=== PATIENT | female | born 1935 | race Caucasian/White ===

== ENCOUNTER 2021-01-07 13:33 | Emergency (ER) | payer MEDICARE, MEDICAID, SELFPAY ==
--- NOTE | ~2021-01-07 | XR_ITS ---
EXAMINATION: XR PELVIS CLINICAL INFORMATION: Pelvic pain. Trouble walking. Rule out fracture. COMPARISON: None TECHNIQUE: AP view of the pelvis. FINDINGS: No fracture or dislocation. The hips are well aligned. Joint spaces are maintained with subchondral sclerosis and small marginal osteophytes. Degenerative changes of the lower lumbar spine. The pelvic rim is intact. The bowel gas pattern is unremarkable. XR/XR pelvis 1-2V IMPRESSION: No fracture or malalignment. Mild degenerative changes of the hips.
--- NOTE | ~2021-01-07 | CT_ITS ---
EXAMINATION: CT HEAD WITHOUT CONTRAST CLINICAL INFORMATION: Auditory mental status. Rule out stroke or bleed. COMPARISON: None TECHNIQUE: Contiguous axial imaging was performed from the skull base to vertex without intravenous administration of contrast. This CT examination was performed using dose optimization techniques as appropriate, variously including the following: *Automated exposure control *Adjustment of mA and/or kV according to patient size (this includes techniques or standardized protocols for targeted exams where dose is matched to indication/reason for exam; i.e. extremities or head) *Use of iterative reconstruction technique DLP: 679 mGy-cm FINDINGS: There is no evidence of acute intracranial hemorrhage or territorial infarction. No abnormal mass effect or midline shift is seen. Chavez to white matter differentiation is well preserved. No extra-axial fluid collections are identified. The lateral ventricles are symmetrical in size and and mildly enlarged. There is diffuse periventricular hypodensity in both cerebral hemispheres suggestive of chronic small vessel ischemic changes. The osseous structures and soft tissues are normal. The mastoid air cells and visualized portions of the paranasal sinuses are well aerated. CT/CT head/brain wo con IMPRESSION: No acute intracranial process seen.
--- NOTE | ~2021-01-07 | XR_ITS ---
EXAMINATION: XR CHEST CLINICAL INFORMATION: Change in mental status. Fever. COMPARISON: None TECHNIQUE: Frontal view of the chest was obtained. FINDINGS: Cardiac leads overlie the chest. The lungs are well expanded. Linear right basilar atelectasis. There is no focal consolidation, edema, or effusion. No pneumothorax. The cardiomediastinal silhouette is within normal limits of size with a tortuous aorta. No acute osseous abnormality. XR/XR chest 1V IMPRESSION: No dense consolidation. Linear atelectasis at the right base.
--- NOTE | 2021-01-07 07:35 | ECG_ITS ---
Test Reason : AMS Blood Pressure : / mmHG Vent. Rate : 082 BPM Atrial Rate : 082 BPM P-R Int : 166 ms QRS Dur : 072 ms QT Int : 382 ms P-R-T Axes : 011 000 016 degrees QTc Int : 446 ms Sinus rhythm with Premature atrial complexes Otherwise normal ECG No previous ECGs available Referred By: Aiden Bhatt Electronically Signed By:ALFONZO KELLER
[2021-01-07 13:55] VITALS: PULSE 88; RESP 24; TEMP 38.2; O2SAT 97; BMI 17.2
[2021-01-07 15:00] LABS: Basophils Percent Auto 0.1 % (0-2); Eosinophils Absolute Auto 0.1 X10*3/uL (0.0-0.4); Eosinophils Percent Auto 0.3 % (0-4); Hematocrit 34.7 % (37-47); Hemoglobin 10.9 g/dl (12.0-16.0); Imm Gran Abs Auto 0.07 X10*3/uL (0.00-0.03); Imm Gran Pct Auto 0.4 % (0.0-0.4); Lymphocytes Absolute Auto 1.5 X10*3/uL (1.2-4.9); Lymphocytes Percent Auto 7.8 % (20-40); MANUAL DIFF FLAG NO; Mean Corpuscular HGB Conc 31.4 g/dl (31.0-35.0); Mean Corpuscular Hemoglobin 29.9 pg (27.0-33.0); Mean Corpuscular Volume 95.3 fL (80-98); Mean Platelet Volume 10.1 fL (9.4-12.3); Monocytes Absolute Auto 0.7 X10*3/uL (0.1-1.2); Monocytes Percent Auto 3.5 % (2-11); Neutrophils Absolute Auto 16.6 X10*3/uL (2.0-8.3); Neutrophils Percent Auto 87.9 % (45-73); Platelet Count 281 X10*3/uL (160-400); Red Blood Count 3.64 X10*6/uL (4.20-5.50); Red Cell Distribution Width 13.9 % (11.0-16.0); White Blood Count 18.8 X10*3/uL (4.8-10.8)
[2021-01-07 15:17] LABS: COVID-19 Test Negative (Negative); IDNOW Serial# 9DD0AD1C
[2021-01-07 15:20] LABS: Lactic Acid 1.3 mmol/L (0.5-2.0)
[2021-01-07 15:24] LABS: Alanine Aminotransferase 12 U/L (0-31); Albumin Level 3.8 g/dL (3.5-5.0); Alkaline Phosphatase 75 U/L (39-117); Anion Gap 15 (12-20); Aspartate Amino Transferase 13 U/L (5-31); Bilirubin Total 0.5 mg/dL (0.0-1.0); Blood Urea Nitrogen 19 mg/dL (9-16); Calcium 9.3 mg/dL (8.4-10.2); Carbon Dioxide 28 mmol/L (22-29); Chloride 105 mmol/L (96-108); Creatinine Clr Calc Pharmacy 39.8; Estimated Glomerular Filt Rate > 60; Glucose Random 143 mg/dL (60-115); Lipase 27 U/L (8-78); Potassium 4.5 mmol/L (3.3-5.1); Sodium 143 mmol/L (135-145); Total Protein 6.4 g/dL (6.5-8.0)
[2021-01-07] MEDS: cefTRIAXone sodium 1 GM in 0.9 % Sodium Chloride 50 ML IV (15:29)
[2021-01-07] MEDS: 0.9 % Sodium Chloride 1,000 ML 999 ML IV (15:31)
[2021-01-07] MEDS: Acetaminophen Supp 650 MG SUPP.RECT PR (15:43)
[2021-01-07 16:04] VITALS: BP 132/73; PULSE 88; RESP 22; TEMP 36.7; O2SAT 97
--- NOTE | 2021-01-07 16:26 | ED_ITS ---
HPI - General Adult General Chief complaint: General Medical <Aiden Bhatt MD - Last Filed: 01/07/21 16:39> Stated complaint: AMS <Aiden Bhatt MD - Last Filed: 01/07/21 16:39> Time Seen by Provider: 01/07/21 14:11 <Aiden Bhatt MD - Last Filed: 01/07/21 16:39> Source: EMS and other (ED nurse) <Aiden Bhatt MD - Last Filed: 01/07/21 16:39> Mode of arrival: EMS <Aiden Bhatt MD - Last Filed: 01/07/21 16:39> Limitations: other (Advanced dementia) <Aiden Bhatt MD - Last Filed: 01/07/21 16:39> History of Present Illness HPI narrative: 85-year-old female who was brought to the emergency department by ambulance [facility] for a change in her gait. According to the nurse, report from EMS states that the patient was off balance and had an unusual gait compared to her baseline. There was no other information regarding the patient's presentation provided by nursing facility. The patient has advan nancy dementia and is minimally verbal and is unable to give a history. On presentation the patient was noted to have a fever of 100.7? F. <Aiden Bhatt MD - Last Filed: 01/07/21 16:39> Related Data Allergies/adverse reactions: Allergies Allergy/AdvReac Type Severity Reaction Status Date / Time aspirin Allergy Unknown Verified 01/07/21 14:16 <Aiden Bhatt MD - Last Filed: 01/07/21 16:39> Review of Systems Review of Systems: Yes Unobtainable due to mental status (Advanced dementia) <Aiden Bhatt MD - Last Filed: 01/07/21 16:39> PMFSH Past Medical History PMFSH Narrative: The patient lives in a penit[facility]iary facility. She does not smoke cigarettes, she does not drink alcohol, she does not use drugs. <Aiden Bhatt MD - Last Filed: 01/07/21 16:39> Medical History: Medical History (Updated 01/07/21 @ 14:00 by Jonatan Burgess) Dementia Diabetes type 2, controlled Hyperlipemia Seborrheic dermatitis Vitamin D deficiency <Aiden Bhatt MD - Last Filed: 01/07/21 16:39> Social History Social History: Social History Advance Directives: No Advance Directives Information Provided: No <Aiden Bhatt MD - Last Filed: 01/07/21 16:39> Physical Exam Vital Signs: Vital Signs: Last Vital Signs Temp 98.8 F 01/07/21 17:44 Pulse 94 01/07/21 17:44 Resp 14 01/07/21 17:44 BP 140/75 H 01/07/21 17:44 Pulse Ox 98 01/07/21 17:44 Body Mass Index 17.2 <Aiden Bhatt MD - Last Filed: 01/07/21 16:39> Vital Signs: Last Vital Signs Temp 98.8 F 01/07/21 17:44 Pulse 94 01/07/21 17:44 Resp 14 01/07/21 17:44 BP 140/75 H 01/07/21 17:44 Pulse Ox 98 01/07/21 17:44 Body Mass Index 17.2 <Baldomero Canela MD - Last Filed: 01/07/21 18:29> Const: General: other (Patient is speaking but is incoherent); No in distress <Aiden Bhatt MD - Last Filed: 01/07/21 16:39> Limitations: other limitations (Advanced dementia) <Aiden Bhatt MD - Last Filed: 01/07/21 16:39> HENMT: Head: Yes normal to inspection, Yes normocephalic and Yes atraumatic <Aiden Bhatt MD - Last Filed: 01/07/21 16:39> Ears: external ears normal <Aiden Bhatt MD - Last Filed: 01/07/21 16:39> General nose exam: Normal external nose present <Aiden Bhatt MD - Last Filed: 01/07/21 16:39> Face and sinus: Yes normal facial exam <Aiden Bhatt MD - Last Filed: 01/07/21 16:39> Mouth: other (Dry mucous membrane) <MD Ron Cantu Last Filed: 01/07/21 16:39> Throat: Yes posterior oropharynx normal <Aiden Bhatt MD - Last Filed: 01/07/21 16:39> Eyes: Periorbital: periorbital findings normal <MD Ron Cantu Last Filed: 01/07/21 16:39> Eyelids: Yes eyelids normal <MD Ron Cantu Last Filed: 01/07/21 16:39> Conjunctivae: conjunctivae normal <MD Ron Cantu Last Filed: 01/07/21 16:39> Sclerae: sclerae normal <MD Ron Cantu Last Filed: 01/07/21 16:39> Corneas: corneas normal <Aiden Bhatt MD - Last Filed: 01/07/21 16:39> Pupils: Equal, round and reactive pupils present <MD Ron Cantu Last Filed: 01/07/21 16:39> Direct Ophthalmoscopy: normal light reflex <MD Ron Cantu Last Filed: 01/07/21 16:39> Neck: Neck: Yes full ROM, Yes no lymphadenopathy, Yes no meningeal signs, Yes trachea midline and Yes supple <MD Ron Cantu Last Filed: 01/07/21 16:39> Chest: Chest palpation & inspection: normal inspection of the chest and normal palpation of entire chest wall <MD Ron Cantu Last Filed: 01/07/21 16:39> Resp: Effort & Inspection: normal respiratory effort and able to speak in complete sentences <MD Ron Cantu Last Filed: 01/07/21 16:39> Auscultation: clear to auscultation bilaterally <MD Ron Cantu Last Filed: 01/07/21 16:39> Cardio: Rate: regular rate <MD Ron Cantu Last Filed: 01/07/21 16:39> Rhythm: regular rhythm <Aiden Bhatt MD - Last Filed: 01/07/21 16:39> Heart sounds: S1 normal heart sound present, S2 normal heart sound present and no murmurs <Aiden Bhatt MD - Last Filed: 01/07/21 16:39> GI: Inspection: Yes normal to inspection <Aiden Bhatt MD - Last Filed: 01/07/21 16:39> Palpation (GI): Soft to palpation, nontender, no guarding, not rigid and No hepatosplenomegaly present <Aiden Bhatt MD - Last Filed: 01/07/21 16:39> : General: Yes no CVA tenderness <Aiden Bhatt MD - Last Filed: 01/07/21 16:39> Back/Spine/Pelvis: Back: no CVA tenderness <Aiden Bhatt MD - Last Filed: 01/07/21 16:39> Cervical Spine: normal cervical lordosis <Aiden Bhatt MD - Last Filed : 01/07/21 16:39> Thoracic/Lumbar Spine: thoracic and lumbar spine normal to inspection <Aiden Bhatt MD - Last Filed: 01/07/21 16:39> Skin: Lesions: no lesions <Aiden Bhatt MD - Last Filed: 01/07/21 16:39> Rashes: no rashes <Aiden Bhatt MD - Last Filed: 01/07/21 16:39> Wounds: no wounds <Aiden Bhatt MD - Last Filed: 01/07/21 16:39> Neuro: General: no meningeal signs <MD Ron Cantu Last Filed: 01/07/21 16:39> Cranial nerves: Yes Equal, round and reactive pupils present <MD Ron Cantu Last Filed: 01/07/21 16:39> Motor exam (neuro): Other motor observations present (Moves all extremities symmetrically) <MD Ron Cantu Last Filed: 01/07/21 16:39> Extrem: General: Yes normal to inspection and Yes full ROM <Aiden Bhatt MD - Last Filed: 01/07/21 16:39> Psych: Appearance: well kempt <Aiden Bhatt MD - Last Filed: 01/07/21 16:39> Course Course Course Narrative: 85-year-old female sent to emergency department for evaluation change in gait, found to have a fever of 100.7? F here in the emergency department. Exam was otherwise unremarkable. I did order a CBC, CMP, blood cultures, urine obtained by straight catheterization, chest x-ray, CT scan of the brain and pelvic x-ray. 1633: [place] [address], she had mild anemia with an H&H of 10.9 and 34.7. COVID-19 test was negative. Chest x-ray revealed no evidence of pneumonia, CT scan of the head revealed no acute process, pelvic x-ray revealed no acute fracture. . 12 EKG revealed a sinus rhythm with no acute findings. Given her elevated white blood cell count, I did order ceftriaxone 1 g IV to treat her for possible urinary source for her fever and elevated WBC. Urinalysis is pending. <Aiden Bhatt MD - Last Filed: 01/07/21 16:39> Reevaluation(s) Reevaluation #1: Patient looks much better now having food in the ER workup showed UTI likely the cause of weakness with discharge patient back to detention on cefpodoxime <Baldomero Canela MD - Last Filed: 01/07/21 18:29> Time: 18:28 <Baldomero Canela MD - Last Filed: 01/07/21 18:29> Medical Decision Making Lab Data Result diagrams: : 01/07/21 14:52 01/07/21 14:52 <Aiden Bhatt MD - Last Filed: 01/07/21 16:39> Labs: Lab Results 01/07/21 01/07/21 01/07/21 Range/Units 14:52 14:52 14:52 WBC 18.8 H (4.8-10.8) X10*3/uL RBC 3.64 L (4.20-5.50) X10*6/uL Hgb 10.9 L (12.0-16.0) g/dl Hct 34.7 L (37-47) % MCV 95.3 (80-98) fL MCH 29.9 (27.0-33.0) pg MCHC 31.4 (31.0-35.0) g/dl RDW 13.9 (11.0-16.0) % Plt Count 281 (160-400) X10*3/uL MPV 10.1 (9.4-12.3) fL Immature Gran % (Auto) 0.4 (0.0-0.4) % Neut % (Auto) 87.9 H (45-73) % Lymph % (Auto) 7.8 L (20-40) % [place] % (Auto) 3.5 (2-11) % Eos % (Auto) 0.3 (0-4) % Baso % (Auto) 0.1 (0-2) % Lymph # (Auto) 1.5 (1.2-4.9) X10*3/uL [place] # (Auto) 0.7 (0.1-1.2) X10*3/uL Eos # (Auto) 0.1 (0.0-0.4) X10*3/uL Baso # (Auto) 0.0 (0.0-0.2) X10*3/uL Abs Immat Gran (auto) 0.07 H (0.00-0.03) X10*3/uL Absolute Neuts (auto) 16.6 H (2.0-8.3) X10*3/uL Absolute Nucleated RBC 0.000 (0.0-0.012) X10*3/uL Nucleated RBC % (auto) 0.0 (0.0-0.2) /100WBC Sodium 143 (135-145) mmol/L Potassium 4.5 (3.3-5.1) mmol/L Chloride 105 (96-108) mmol/L Carbon Dioxide 28 (22-29) mmol/L Anion Gap 15 (12-20) BUN 19 H (9-16) mg/dL Creatinine 0.73 (0.5-1.4) mg/dL Estim Creat Clear Calc 39.8 Estimated GFR > 60 Random Glucose 143 H (60-115) mg/dL Lactic Acid 1.3 (0.5-2.0) mmol/L Calcium 9.3 (8.4-10.2) mg/dL Total Bilirubin 0.5 (0.0-1.0) mg/dL AST 13 (5-31) U/L ALT 12 (0-31) U/L Alkaline Phosphatase 75 (39-117) U/L Total Protein 6.4 L (6.5-8.0) g/dL Albumin 3.8 (3.5-5.0) g/dL Lipase 27 (8-78) U/L Urine Color Urine Appearance Urine pH (5.0-8.0) Ur Specific [place] (1.005-1.025) Urine Protein (NEG-TRACE) MG/DL Urine Glucose (UA) (NEG) MG/DL Urine Ketones (NEG) MG/DL Urine Blood (NEG) Urine Nitrite (NEG) Ur Leukocyte Esterase (NEG) Urine RBC (0) /HPF Urine WBC (0-4) /HPF Ur Squamous Epith Cells /LPF Urine Bacteria /LPF COVID-19 ([facility]) (Negative) COVID-19 Clin Com 01/07/21 01/07/21 Range/Units 14:52 16:22 WBC (4.8-10.8) X10*3/uL RBC (4.20-5.50) X10*6/uL Hgb (12.0-16.0) g/dl Hct (37-47) % MCV (80-98) fL MCH (27.0-33.0) pg MCHC (31.0-35.0) g/dl RDW (11.0-16.0) % Plt Count (160-400) X10*3/uL MPV (9.4-12.3) fL Immature Gran % (Auto) (0.0-0.4) % Neut % (Auto) (45-73) % Lymph % (Auto) (20-40) % [place] % (Auto) (2-11) % Eos % (Auto) (0-4) % Baso % (Auto) (0-2) % Lymph # (Auto) (1.2-4.9) X10*3/uL [place] # (Auto) (0.1-1.2) X10*3/uL Eos # (Auto) (0.0-0.4) X10*3/uL Baso # (Auto) (0.0-0.2) X10*3/uL Abs Immat Gran (auto) (0.00-0.03) X10*3/uL Absolute Neuts (auto) (2.0-8.3) X10*3/uL Absolute Nucleated RBC (0.0-0.012) X10*3/uL Nucleated RBC % (auto) (0.0-0.2) /100WBC Sodium (135-145) mmol/L Potassium (3.3-5.1) mmol/L Chloride (96-108) mmol/L Carbon Dioxide (22-29) mmol/L Anion Gap (12-20) BUN (9-16) mg/dL Creatinine (0.5-1.4) mg/dL Estim Creat Clear Calc Estimated GFR Random Glucose (60-115) mg/dL Lactic Acid (0.5-2.0) mmol/L Calcium (8.4-10.2) mg/dL Total Bilirubin (0.0-1.0) mg/dL AST (5-31) U/L ALT (0-31) U/L Alkaline Phosphatase (39-117) U/L Total Protein (6.5-8.0) g/dL Albumin (3.5-5.0) g/dL Lipase (8-78) U/L Urine Color YELLOW Urine Appearance HAZY Urine pH 5.5 (5.0-8.0) Ur Specific [place] >= 1.030 H (1.005-1.025) Urine Protein NEG (NEG-TRACE) MG/DL Urine Glucose (UA) NEG (NEG) MG/DL Urine Ketones NEG (NEG) MG/DL Urine Blood TRACE (NEG) Urine Nitrite POS H (NEG) Ur Leukocyte Esterase 2+ H (NEG) Urine RBC 0 (0) /HPF Urine WBC 76-150 H (0-4) /HPF Ur Squamous Epith Cells 3+ /LPF Urine Bacteria 3+ /LPF COVID-19 ([facility]) Negative (Negative) COVID-19 Clin Com See Note <Aiden Bhatt MD - Last Filed: 01/07/21 16:39> Lab Results 01/07/21 01/07/21 01/07/21 Range/Units 14:52 14:52 14:52 WBC 18.8 H (4.8-10.8) X10*3/uL RBC 3.64 L (4.20-5.50) X10*6/uL Hgb 10.9 L (12.0-16.0) g/dl Hct 34.7 L (37-47) % MCV 95.3 (80-98) fL MCH 29.9 (27.0-33.0) pg MCHC 31.4 (31.0-35.0) g/dl RDW 13.9 (11.0-16.0) % Plt Count 281 (160-400) X10*3/uL MPV 10.1 (9.4-12.3) fL Immature Gran % (Auto) 0.4 (0.0-0.4) % Neut % (Auto) 87.9 H (45-73) % Lymph % (Auto) 7.8 L (20-40) % [place] % (Auto) 3.5 (2-11) % Eos % (Auto) 0.3 (0-4) % Baso % (Auto) 0.1 (0-2) % Lymph # (Auto) 1.5 (1.2-4.9) X10*3/uL [place] # (Auto) 0.7 (0.1-1.2) X10*3/uL Eos # (Auto) 0.1 (0.0-0.4) X10*3/uL Baso # (Auto) 0.0 (0.0-0.2) X10*3/uL Abs Immat Gran (auto) 0.07 H (0.00-0.03) X10*3/uL Absolute Neuts (auto) 16.6 H (2.0-8.3) X10*3/uL Absolute Nucleated RBC 0.000 (0.0-0.012) X10*3/uL Nucleated RBC % (auto) 0.0 (0.0-0.2) /100WBC Sodium 143 (135-145) mmol/L Potassium 4.5 (3.3-5.1) mmol/L Chloride 105 (96-108) mmol/L Carbon Dioxide 28 (22-29) mmol/L Anion Gap 15 (12-20) BUN 19 H (9-16) mg/dL Creatinine 0.73 (0.5-1.4) mg/dL Estim Creat Clear Calc 39.8 Estimated GFR > 60 Random Glucose 143 H (60-115) mg/dL Lactic Acid 1.3 (0.5-2.0) mmol/L Calcium 9.3 (8.4-10.2) mg/dL Total Bilirubin 0.5 (0.0-1.0) mg/dL AST 13 (5-31) U/L ALT 12 (0-31) U/L Alkaline Phosphatase 75 (39-117) U/L Total Protein 6.4 L (6.5-8.0) g/dL Albumin 3.8 (3.5-5.0) g/dL Lipase 27 (8-78) U/L Urine Color Urine Appearance Urine pH (5.0-8.0) Ur Specific [place] (1.005-1.025) Urine Protein (NEG-TRACE) MG/DL Urine Glucose (UA) (NEG) MG/DL Urine Ketones (NEG) MG/DL Urine Blood (NEG) Urine Nitrite (NEG) Ur Leukocyte Esterase (NEG) Urine RBC (0) /HPF Urine WBC (0-4) /HPF Ur Squamous Epith Cells /LPF Urine Bacteria /LPF COVID-19 ([facility]) (Negative) COVID-19 Clin Com 01/07/21 01/07/21 Range/Units 14:52 16:22 WBC (4.8-10.8) X10*3/uL RBC (4.20-5.50) X10*6/uL Hgb (12.0-16.0) g/dl Hct (37-47) % MCV (80-98) fL MCH (27.0-33.0) pg MCHC (31.0-35.0) g/dl RDW (11.0-16.0) % Plt Count (160-400) X10*3/uL MPV (9.4-12.3) fL Immature Gran % (Auto) (0.0-0.4) % Neut % (Auto) (45-73) % Lymph % (Auto) (20-40) % [place] % (Auto) (2-11) % Eos % (Auto) (0-4) % Baso % (Auto) (0-2) % Lymph # (Auto) (1.2-4.9) X10*3/uL [place] # (Auto) (0.1-1.2) X10*3/uL Eos # (Auto) (0.0-0.4) X10*3/uL Baso # (Auto) (0.0-0.2) X10*3/uL Abs Immat Gran (auto) (0.00-0.03) X10*3/uL Absolute Neuts (auto) (2.0-8.3) X10*3/uL Absolute Nucleated RBC (0.0-0.012) X10*3/uL Nucleated RBC % (auto) (0.0-0.2) /100WBC Sodium (135-145) mmol/L Potassium (3.3-5.1) mmol/L Chloride (96-108) mmol/L Carbon Dioxide (22-29) mmol/L Anion Gap (12-20) BUN (9-16) mg/dL Creatinine (0.5-1.4) mg/dL Estim Creat Clear Calc Estimated GFR Random Glucose (60-115) mg/dL Lactic Acid (0.5-2.0) mmol/L Calcium (8.4-10.2) mg/dL Total Bilirubin (0.0-1.0) mg/dL AST (5-31) U/L ALT (0-31) U/L Alkaline Phosphatase (39-117) U/L Total Protein (6.5-8.0) g/dL Albumin (3.5-5.0) g/dL Lipase (8-78) U/L Urine Color YELLOW Urine Appearance HAZY Urine pH 5.5 (5.0-8.0) Ur Specific [place] >= 1.030 H (1.005-1.025) Urine Protein NEG (NEG-TRACE) MG/DL Urine Glucose (UA) NEG (NEG) MG/DL Urine Ketones NEG (NEG) MG/DL Urine Blood TRACE (NEG) Urine Nitrite POS H (NEG) Ur Leukocyte Esterase 2+ H (NEG) Urine RBC 0 (0) /HPF Urine WBC 76-150 H (0-4) /HPF Ur Squamous Epith Cells 3+ /LPF Urine Bacteria 3+ /LPF COVID-19 ([facility]) Negative (Negative) COVID-19 Clin Com See Note <Baldomero Canela MD - Last Filed: 01/07/21 18:29> ECG Data Interpretation: 1611: Sinus rhythm with marked sinus arrhythmia, rate of 82, normal IN, QRS and QTC intervals, no ST segment elevation or depression, no T-wave abnormalities, except for the sinus arrhythmia this is a normal EKG. <Aiden Bhatt MD - Last Filed: 01/07/21 16:39>
[2021-01-07 16:36] LABS: Glucose Urine UA NEG (NEG); Leukocyte Esterase Urine 2+ (NEG); Nitrite Urine POS (NEG); PH 5.5 (5.0-8.0); Specific Gravity - Urine >= 1.030 (1.005-1.025); UACC Culture Trigger YES; Urine Blood TRACE (NEG); Urine Ketones NEG (NEG); Urine Protein NEG (NEG-TRACE)
[2021-01-07 16:41] LABS: Appearance Urine HAZY; Color Urine YELLOW
[2021-01-07 16:56] LABS: RBC Urine 0 /HPF (0)
[2021-01-07 16:57] LABS: Bacteria Urine 3+ /LPF; Squamous Epithelial Cell Urine 3+ /LPF
[2021-01-07 17:44] VITALS: BP 140/75; PULSE 94; RESP 14; TEMP 37.1; O2SAT 98
--- NOTE | 2021-01-07 18:55 | PC.NURSE ---
Report given to [facility]. Ambulance being booked by social secretary at this time.
== END 2021-01-07 20:05 | disposition home or self-care (01) ==
PROVIDERS: Emergency Provider Emergency Medicine Emergency Medical Services; PCP Family Medicine
DX: N39.0 Urinary tract infection, site not specified (principal); F03.90 Unspecified dementia, unspecified severity, without behavioral disturbance, psychotic disturbance, mood disturbance, and anxiety; Z20.822 Contact with and (suspected) exposure to COVID-19; R50.9 Fever, unspecified; E11.9 Type 2 diabetes mellitus without complications; E78.5 Hyperlipidemia, unspecified
CPT/HCPCS: 36415; 70450; 71045; 72170; 80053; 81001; 81003; 83605; 83690; 85025; 87040; 87086; 87088; 87147; 87186; 87205; 87635; 93005; 96361; 96365; 99284; J0696

== ENCOUNTER 2021-05-17 19:18 | Emergency (ER) | payer MEDICARE, MEDICAID, SELFPAY ==
--- NOTE | ~2021-05-17 | XR_ITS ---
EXAMINATION: XR THORACOLUMBAR SPINE CLINICAL INFORMATION: Pain COMPARISON: None TECHNIQUE: 2 view FINDINGS: There is degeneration here but no evidence of listhesis or compression injury on the imaging submitted. XR/XR thoracic spine 2V IMPRESSION: No acute finding. Degenerative changes are noted.
[2021-05-17 19:21] VITALS: BP 124/59; PULSE 81; O2SAT 99
[2021-05-17 19:22] VITALS: BP 148/76; PULSE 72; RESP 16; TEMP 36.9; O2SAT 98; BMI 25.8
--- NOTE | 2021-05-17 20:15 | ED.FALL ---
HPI - Fall General Chief Complaint: Fall Stated Complaint: FALL Time Seen by Provider: 05/17/21 19:48 Source: RN notes reviewed and other (Facility records) Limitations: altered mental status (Dementia) History of Present Illness HPI Narrative: This is an 86-year-old female who reportedly had a mechanical fall and complained of pain in her right shoulder and right knee. Patient has severe dementia. The patient at this time complains only of pain in her upper back, though this was only elicited upon palpation of her upper back. She likely did not hit her head and she denies any neck pain. She denies any chest pain, shortness of breath, abdominal pain. Related Data Previous Rx's Medication Instructions Recorded cefpodoxime 200 mg tablet 200 mg PO BID #20 tab 01/07/21 Allergies Allergy/AdvReac Type Severity Reaction Status Date / Time aspirin Allergy Unknown Verified 01/07/21 14:16 Review of Systems Constitutional: Constitutional: Denies headache(s) ENT: Denies headache(s) Cardiovascular: Cardiovascular: Denies chest pain and Denies dyspnea Respiratory: Respiratory: Denies dyspnea Gastrointestinal: Gastrointestinal: Denies abdominal pain Musculoskeletal: Musculoskeletal: Reports back pain Neurologic: Denies headache(s) and Denies Sensory deficit (Neuro) [facility] Past Medical History Medical History (Updated 05/17/21 @ 20:51 by Abel Richter MD) Dementia Diabetes type 2, controlled Hyperlipemia Seborrheic dermatitis Vitamin D deficiency Social History Social History Advance Directives: No Advance Directives Information Provided: No Physical Exam Vital Signs: Vital Signs: Last Vital Signs Temp 98.5 F 05/17/21 19:22 Pulse 72 05/17/21 19:22 Resp 16 05/17/21 19:22 BP 148/76 H 05/17/21 19:22 Pulse Ox 98 05/17/21 19:22 Body Mass Index 25.8 Const: Other: Patient with dementia, speech somewhat difficult to understand due to her accent. Patient able sit up on the gurney. Shoulders have full range of motion without any focal tenderness. Clavicles nontender. Head normocephalic atraumatic. No cervical spine tenderness. Tenderness to the upper thoracic spine at around T2-T3 with some right paraspinal tenderness in this area. Ribs nontender. Abdomen soft nontender. Pelvis Stable nontender. Lower extremities nontender to flexion and extension General: cooperative, no acute distress and alert HENMT: Head: Yes normal to inspection Eyes: General: appearance normal, both eyes and all related structures Eyelids: Yes eyelids normal Conjunctivae: conjunctivae normal Pupils: Equal, round and reactive pupils present Neck: Neck: Yes normal visual inspection and Yes supple Chest: Chest palpation & inspection: normal inspection of the chest Resp: Effort & Inspection: normal respiratory effort Auscultation: clear to auscultation bilaterally Cardio: Rate: regular rate Rhythm: regular rhythm Heart sounds: S1 normal heart sound present, S2 normal heart sound present, no gallops, no murmurs and no rubs GI: Palpation (GI): Soft to palpation, nontender and Other GI palpation findings present (Non-distended) Auscultation: normal bowel sounds Skin: General skin exam: no rashes or lesions noted Neuro: General: no focal motor deficits and CN's II-XI intact bilaterally Cranial nerves: Yes Equal, round and reactive pupils present Cognition (Neuro): normal cognition Motor exam (neuro): 5/5 motor strength present throughout Sensory Exam: No Sensory deficit (Neuro) Extrem: General: Yes normal to inspection and Yes no pedal edema Psych: Appearance: grossly normal Affect: normal affect MDM - Fall MDM Narrative Medical decision making narrative: Patient with apparently witnessed mechanical fall, had initially complained of pain in her right shoulder and right knee, however upon re-evaluation the patient has no complaint of pain there and has no tenderness on exam to her right shoulder or right knee. Patient did on my exam have tenderness to her upper thoracic spine. Two-view of the spine did not show any compression deformity. There were degenerative changes. Imaging Data Thoracic spine x-ray: My impression: Degenerative changes, no compression deformity Discharge Plan Discharge Clinical Impression: Fall, Dementia Patient Disposition: er [facility] Instructions: Fall Prevention for Older Adults (ED) Additional Instructions: Use Tylenol for pain. Return for any new or worsened symptoms. Prescriptions: No Action cefpodoxime 200 mg tablet 200 mg PO BID Qty: 20 RF: 0
--- NOTE | 2021-05-17 21:29 | PC.NURSE ---
Report called to facility.
== END 2021-05-17 21:36 ==
PROVIDERS: Emergency Provider Emergency Medicine
DX: S49.91XA Unspecified injury of right shoulder and upper arm, initial encounter (principal); F03.90 Unspecified dementia, unspecified severity, without behavioral disturbance, psychotic disturbance, mood disturbance, and anxiety; M79.601 Pain in right arm; G44.309 Post-traumatic headache, unspecified, not intractable; M54.6 Pain in thoracic spine; W01.0XXA Fall on same level from slipping, tripping and stumbling without subsequent striking against object, initial encounter; Y93.9 Activity, unspecified; Y92.9 Unspecified place or not applicable; Y99.9 Unspecified external cause status; Z79.899 Other long term (current) drug therapy
CPT/HCPCS: 72070; 99283; 99284

== ENCOUNTER 2022-11-07 22:23 | Emergency (ER) | payer MEDICARE, MEDICAID, SELFPAY ==
--- NOTE | 2022-11-07 | ECG_ITS ---
Test Reason : vomiting Blood Pressure : / mmHG Vent. Rate : 088 BPM Atrial Rate : 088 BPM P-R Int : 152 ms QRS Dur : 062 ms QT Int : 364 ms P-R-T Axes : 011 -15 022 degrees QTc Int : 440 ms Normal sinus rhythm Possible Left atrial enlargement Minimal voltage criteria for LVH, may be normal variant ( R in aVL ) Nonspecific ST abnormality Abnormal ECG When compared with ECG of 07-JAN-2021 14:06, Premature atrial complexes are no longer Present Referred By: Generic ED Physician Electronically Signed By:JASMYN HERNÁNDEZ MD
--- NOTE | ~2022-11-07 | XR_ITS ---
EXAMINATION: XR CHEST CLINICAL INFORMATION: Cough COMPARISON: 01.07.2021 TECHNIQUE: Frontal view of the chest was obtained. FINDINGS: Normal symmetric lung volumes. No parenchymal consolidation. No pleural effusion. No pneumothorax. Cardiomediastinal silhouette and pulmonary vascularity are within normal limits. Aorta is atherosclerotic. No acute osseous abnormalities. XR/XR chest 1V IMPRESSION: No acute findings.
--- NOTE | ~2022-11-07 | CT_ITS ---
EXAMINATION: CT ABDOMEN AND PELVIS WITHOUT CONTRAST CLINICAL INFORMATION: Vomiting COMPARISON: None TECHNIQUE: Multidetector volumetric imaging was performed from the superior aspect of the liver through the pubic symphysis. Sagittal and coronal reformatted images were obtained on the technologist's workstation. This CT examination was performed using dose optimization techniques as appropriate, variously including the following: *Automated exposure control *Adjustment of mA and/or kV according to patient size (this includes techniques or standardized protocols for targeted exams where dose is matched to indication/reason for exam; i.e. extremities or head) *Use of iterative reconstruction technique DLP: 427 mGy-cm FINDINGS: LUNG BASES: Diffuse moderate bronchial thickening. LIVER, GALLBLADDER, AND BILIARY TREE: The liver is normal in size, shape, and attenuation. No focal hepatic lesion or biliary ductal dilatation is present. The gallbladder is unremarkable with no evidence of radiopaque gallstones, gallbladder wall thickening, or obvious pericholecystic inflammatory changes. PANCREAS: Unremarkable. SPLEEN: Unremarkable. ADRENAL GLANDS: Unremarkable. KIDNEYS AND URETERS: The kidneys are normal in size, shape, and attenuation. No hydronephrosis, hydroureter, or calculi seen. No perinephric stranding. BLADDER: Unremarkable. GASTROINTESTINAL TRACT: Moderate hiatal hernia. The small and large bowel are unremarkable. The appendix is unremarkable. ABDOMINAL WALL: No significant hernia is appreciated. LYMPH NODES: Normal. VASCULAR: Unremarkable. PELVIC VISCERA: Calcified uterine fibroid. No adnexal abnormalities. OSSEOUS STRUCTURES: No acute or suspicious osseous abnormalities. CT/CT abdomen pelvis wo IV con IMPRESSION: * No acute findings within the abdomen or pelvis to explain the patient's symptomatology. * Moderate hiatal hernia. Fleischner guidelines were followed.
[2022-11-07 22:38] VITALS: BP 195/65; PULSE 83; RESP 21; TEMP 37.1; O2SAT 97; BMI 24.5
[2022-11-07 22:44] VITALS: BP 159/64; PULSE 78; RESP 21; O2SAT 98
[2022-11-07 22:59] LABS: MANUAL DIFF FLAG NO
[2022-11-07 23:00] LABS: Basophils Percent Auto 0.1 % (0-2); Eosinophils Absolute Auto 0.2 X10*3/uL (0.0-0.4); Eosinophils Percent Auto 2.3 % (0-4); Hematocrit 35.7 % (37.0-47.0); Hemoglobin 11.2 g/dl (12.0-16.0); Imm Gran Abs Auto 0.03 X10*3/uL (0.00-0.03); Imm Gran Pct Auto 0.4 % (0.0-0.4); Lymphocytes Absolute Auto 1.6 X10*3/uL (1.2-4.9); Lymphocytes Percent Auto 21.8 % (20-40); Mean Corpuscular HGB Conc 31.4 g/dl (31.0-35.0); Mean Corpuscular Hemoglobin 29.4 pg (27.0-33.0); Mean Corpuscular Volume 93.7 fL (80.0-98.0); Mean Platelet Volume 10.2 fL (9.4-12.3); Monocytes Absolute Auto 0.5 X10*3/uL (0.1-1.2); Monocytes Percent Auto 7.2 % (2-11); Neutrophils Absolute Auto 5.1 x10*3/uL (2.0-8.3); Neutrophils Percent Auto 68.2 % (45-73); Platelet Count 248 X10*3/uL (160-400); Red Blood Count 3.81 X10*6/uL (4.20-5.50); Red Cell Distribution Width 13.3 % (11.0-16.0); White Blood Count 7.5 X10*3/uL (4.8-10.8)
[2022-11-07 23:23] LABS: Anion Gap 15 (12-20); Blood Urea Nitrogen 19 mg/dL (9-16); Calcium 8.9 mg/dL (8.4-10.2); Carbon Dioxide 26 mmol/L (22-29); Chloride 104 mmol/L (96-108); Estimated Glomerular Filt Rate > 60; Glucose Random 156 mg/dL (60-115); Potassium 4.4 mmol/L (3.3-5.1); Sodium 141 mmol/L (135-145)
--- NOTE | 2022-11-07 23:37 | PC.NURSE ---
Pt [facility] from [facility], per staff pt vomited coffee ground emesis at 2114. Pt not currently vomiting and denies nausea. Pt changed over into hospital gown and purewick placed for incontinence
--- NOTE | 2022-11-07 23:39 | ED.ABDPAIN ---
HPI - Abdominal Pain General Chief Complaint: Nausea/Vomiting/Diarrhea Stated Complaint: abd pain Time Seen by Provider: 11/07/22 23:28 Source: EMS and RN notes reviewed Mode of arrival: EMS Limitations: altered mental status History of Present Illness HPI narrative: Patient from long term with history of chronic pain syndrome ,GERD, dysphagia type 2 diabetes dementia with psychotic disorder came in from long term for complaining of diffuse abdominal pain at 21:15 vomited 2 times brown coffee color also been having cough for last 3 weeks vitals at the time heart rate was 78 saturating 92% room air blood pressure 193/86 POC was 167 negative COVID test on 11/07/22. Patient denies any complaint seems to be comfortable no cough no vomiting in the ER Related Data Previous Rx's Medication Instructions Recorded cefpodoxime 200 mg tablet 200 mg PO BID #20 tabs 01/07/21 Allergies Allergy/AdvReac Type Severity Reaction Status Date / Time aspirin Allergy Unknown Verified 01/07/21 14:16 Review of Systems Review of Systems Yes Unobtainable due to mental status PMFSH Past Medical History Medical History Dementia Diabetes type 2, controlled Hyperlipemia Seborrheic dermatitis Vitamin D deficiency Social History Social History Advance Directives: No Physical Exam ED Vital Signs: Vital Signs - 24 hr 11/07/22 22:38 11/07/22 22:44 11/08/22 00:11 Temperature 98.7 F Pulse Rate 83 78 80 Respiratory Rate 21 H 21 H 12 Blood Pressure 195/65 H 159/64 H 150/45 H Pulse Oximetry 97 98 98 Oxygen Delivery Method Room Air Room Air Room Air BMI result Body Mass Index 24.5 Appearance: Alert. And awake. No acute distress. Eyes: PERRLA, No Nystagmus ENT: Pharynx normal. Oral Mucosa moist Neck: Normal inspection. Neck supple. CVS: Normal heart rate and rhythm. Pulses normal. Respiratory: No respiratory distress. Equal air entry bilateral, no wheezing/rales/rhonchi Abdomen: Soft and nontender. Bowel sounds are present, no mass palpable, no CVA tenderness rectal; brown stool guaiac negative Skin: Skin warm and dry. Normal skin color. Normal skin turgor. Extremities: No lower extremity edema. No calf tenderness Neuro: Alert and awake no focal deficit Medical Decision Making Medical Decision Making [facility] Narrative: Patient with vomiting at the long term with cough for last [address] scan of the abdomen negative for acute chest x-ray also negative lab workup showed RSV positive patient H and H is stable guaiac is negative will discharge patient back to long term with diagnosis of RSV bronchitis Lab Data [facility] Lab Attestation statement: I reviewed the patient's lab results. 11/07/22 22:54 11/07/22 22:54 Labs: Lab Results 11/07/22 11/07/22 11/07/22 Range/Units 22:54 22:54 22:54 WBC 7.5 (4.8-10.8) X10*3/uL RBC 3.81 L (4.20-5.50) X10*6/uL Hgb 11.2 L (12.0-16.0) g/dl Hct 35.7 L (37.0-47.0) % MCV 93.7 (80.0-98.0) fL MCH 29.4 (27.0-33.0) pg MCHC 31.4 (31.0-35.0) g/dl RDW 13.3 (11.0-16.0) % Plt Count 248 (160-400) X10*3/uL MPV 10.2 (9.4-12.3) fL Immature Gran % (Auto) 0.4 (0.0-0.4) % Neut % (Auto) 68.2 (45-73) % Lymph % (Auto) 21.8 (20-40) % [place] % (Auto) 7.2 (2-11) % Eos % (Auto) 2.3 (0-4) % Baso % (Auto) 0.1 (0-2) % Lymph # (Auto) 1.6 (1.2-4.9) X10*3/uL [place] # (Auto) 0.5 (0.1-1.2) X10*3/uL Eos # (Auto) 0.2 (0.0-0.4) X10*3/uL Baso # (Auto) 0.0 (0.0-0.2) X10*3/uL Abs Immat Gran (auto) 0.03 (0.00-0.03) X10*3/uL Absolute Neuts (auto) 5.1 (2.0-8.3) x10*3/uL Absolute Nucleated RBC 0.000 (0.0-0.012) X10*3/uL Nucleated RBC % (auto) 0.0 (0.0-0.2) /100WBC Sodium 141 (135-145) mmol/L Potassium 4.4 (3.3-5.1) mmol/L Chloride 104 (96-108) mmol/L Carbon Dioxide 26 (22-29) mmol/L Anion Gap 15 (12-20) BUN 19 H (9-16) mg/dL Creatinine 0.68 (0.5-1.4) mg/dL Estim Creat Clear Calc 47.0 Estimated GFR > 60 Random Glucose 156 H (60-115) mg/dL Calcium 8.9 (8.4-10.2) mg/dL Total Bilirubin 0.3 (0.0-1.0) mg/dL Direct Bilirubin < 0.2 (0.0-0.5) mg/dL AST 24 (5-31) U/L ALT 12 (0-31) U/L Alkaline Phosphatase 101 (39-117) U/L Total Protein 7.0 (6.5-8.0) g/dL Albumin 3.9 (3.5-5.0) g/dL Lipase 39 (8-78) U/L Stool Occult Blood (NEGATIVE) Influenza Type A (PCR) NEGATIVE (Negative) Influenza Type B (PCR) NEGATIVE (Negative) RSV RNA Qual (PCR) POSITIVE A (Negative) SARS-CoV-2 RNA (RT-PCR) NEGATIVE (Negative) 11/08/22 Range/Units 01:39 WBC (4.8-10.8) X10*3/uL RBC (4.20-5.50) X10*6/uL Hgb (12.0-16.0) g/dl Hct (37.0-47.0) % MCV (80.0-98.0) fL MCH (27.0-33.0) pg MCHC (31.0-35.0) g/dl RDW (11.0-16.0) % Plt Count (160-400) X10*3/uL MPV (9.4-12.3) fL Immature Gran % (Auto) (0.0-0.4) % Neut % (Auto) (45-73) % Lymph % (Auto) (20-40) % [place] % (Auto) (2-11) % Eos % (Auto) (0-4) % Baso % (Auto) (0-2) % Lymph # (Auto) (1.2-4.9) X10*3/uL [place] # (Auto) (0.1-1.2) X10*3/uL Eos # (Auto) (0.0-0.4) X10*3/uL Baso # (Auto) (0.0-0.2) X10*3/uL Abs Immat Gran (auto) (0.00-0.03) X10*3/uL Absolute Neuts (auto) (2.0-8.3) x10*3/uL Absolute Nucleated RBC (0.0-0.012) X10*3/uL Nucleated RBC % (auto) (0.0-0.2) /100WBC Sodium (135-145) mmol/L Potassium (3.3-5.1) mmol/L Chloride (96-108) mmol/L Carbon Dioxide (22-29) mmol/L Anion Gap (12-20) BUN (9-16) mg/dL Creatinine (0.5-1.4) mg/dL Estim Creat Clear Calc Estimated GFR Random Glucose (60-115) mg/dL Calcium (8.4-10.2) mg/dL Total Bilirubin (0.0-1.0) mg/dL Direct Bilirubin (0.0-0.5) mg/dL AST (5-31) U/L ALT (0-31) U/L Alkaline Phosphatase (39-117) U/L Total Protein (6.5-8.0) g/dL Albumin (3.5-5.0) g/dL Lipase (8-78) U/L Stool Occult Blood NEGATIVE (NEGATIVE) Influenza Type A (PCR) (Negative) Influenza Type B (PCR) (Negative) RSV RNA Qual (PCR) (Negative) SARS-CoV-2 RNA (RT-PCR) (Negative) Medications Administered Discontinued Medications Generic Name Dose Route Start Last Admin Trade Name Freq PRN Reason Stop Dose Admin Famotidine 20 mg 11/07/22 23:53 11/08/22 00:08 Famotidine/Pf 20 Mg/2 Ml Vial IVPUSH 11/07/22 23:54 20 mg ONCE ONE Administration Sodium Chloride 1,000 mls @ 999 mls/hr 11/07/22 23:55 11/08/22 01:04 Ns IV 11/08/22 00:55 Infused .Q1H1M ONE Infusion Discharge Plan Discharge Clinical Impression: Respiratory syncytial virus (RSV) infection, Vomiting Patient Disposition: Xfer [facility] Transfer Details: CT scan of the abdomen negative stool negative for occult blood RSV positive chest x-ray negative Instructions: Respiratory Syncytial Virus (ED) Additional Instructions: Supportive care as advised Follow-up with your PCP Prescriptions: No Action cefpodoxime 200 mg tablet 200 mg PO BID Qty: 20 0RF Rx Instructions: must administer with a meal/food Interventions: ED Discharge Assessment Last Done: 11/08/22 03:03 Discharge Date/Time: 11/08/22 03:03
[2022-11-08] MEDS: Famotidine/PF 20 MG/2 ML VIAL IVPUSH (00:08)
[2022-11-08] MEDS: 0.9 % Sodium Chloride 1,000 ML 999 ML IV (00:09)
[2022-11-08 00:11] VITALS: BP 150/45; PULSE 80; RESP 12; O2SAT 98
[2022-11-08 00:20] LABS: Alanine Aminotransferase 12 U/L (0-31); Albumin Level 3.9 g/dL (3.5-5.0); Alkaline Phosphatase 101 U/L (39-117); Aspartate Amino Transferase 24 U/L (5-31); Bilirubin Direct < 0.2 mg/dL (0.0-0.5); Bilirubin Total 0.3 mg/dL (0.0-1.0); Lipase 39 U/L (8-78)
[2022-11-08 00:52] LABS: Influenza A PCR NEGATIVE (Negative); Influenza B PCR NEGATIVE (Negative); Resp Syncy Virus RNA Qual PCR POSITIVE (Negative); SARS COV2 PCR INHOUSE NEGATIVE (Negative)
--- NOTE | 2022-11-08 01:11 | PC.NURSE ---
pt continues to rest comfortably with no apparent distress, pt tested positive for RSV, pt continues to cough occasionally however no vomiting or nausea
--- NOTE | 2022-11-08 01:41 | PC.NURSE ---
called report back to [facility], staff is aware pt is returned RSV positive
[2022-11-08 01:42] LABS: OBS Int Ctl Valid YES
[2022-11-08 01:43] LABS: OBS1 NEGATIVE (NEGATIVE)
== END 2022-11-08 03:03 | disposition skilled nursing facility (03) ==
PROVIDERS: Emergency Provider Internal Medicine; PCP Family Medicine
DX: R11.2 Nausea with vomiting, unspecified (principal); B97.4 Respiratory syncytial virus as the cause of diseases classified elsewhere; Z20.822 Contact with and (suspected) exposure to COVID-19; Z20.828 Contact with and (suspected) exposure to other viral communicable diseases; E11.9 Type 2 diabetes mellitus without complications; E78.5 Hyperlipidemia, unspecified; F03.92 Unspecified dementia, unspecified severity, with psychotic disturbance; G89.4 Chronic pain syndrome; Z79.899 Other long term (current) drug therapy
CPT/HCPCS: 0241U; 36415; 71045; 74176; 80048; 80076; 82272; 83690; 85025; 93005; 96361; 96374; 99284

== ENCOUNTER 2023-09-19 11:07 | Emergency (ER) | payer MEDICARE, MEDICAID, SELFPAY ==
--- NOTE | 2023-09-19 11:21 | ECG_ITS ---
Test Reason : CHEST PAIN Blood Pressure : / mmHG Vent. Rate : 073 BPM Atrial Rate : 073 BPM P-R Int : 170 ms QRS Dur : 068 ms QT Int : 390 ms P-R-T Axes : 013 -18 035 degrees QTc Int : 429 ms Normal sinus rhythm with sinus arrhythmia Minimal voltage criteria for LVH, may be normal variant ( R in aVL ) Borderline ECG When compared with ECG of 07-NOV-2022 22:43, No significant change was found Referred By: Generic ED Physician Electronically Signed By:JASMYN HERNÁNDEZ MD
[2023-09-19 11:22] VITALS: BP 148/90; BP 157/60; PULSE 66; RESP 18; TEMP 36.5; O2SAT 100; O2SAT 97; BMI 24.2
[2023-09-19 11:52] LABS: MANUAL DIFF FLAG NO
[2023-09-19 11:57] LABS: Basophils Percent Auto 0.2 % (0-2); Eosinophils Absolute Auto 0.1 X10*3/uL (0.0-0.4); Eosinophils Percent Auto 1.4 % (0-4); Hematocrit 37.7 % (37.0-47.0); Hemoglobin 11.8 g/dl (12.0-16.0); Imm Gran Abs Auto 0.02 X10*3/uL (0.00-0.03); Imm Gran Pct Auto 0.2 % (0.0-0.4); Lymphocytes Absolute Auto 1.8 X10*3/uL (1.2-4.9); Lymphocytes Percent Auto 21.9 % (20-40); Mean Corpuscular HGB Conc 31.3 g/dl (31.0-35.0); Mean Corpuscular Hemoglobin 30.3 pg (27.0-33.0); Mean Corpuscular Volume 96.7 fL (80.0-98.0); Mean Platelet Volume 10.7 fL (9.4-12.3); Monocytes Absolute Auto 0.8 X10*3/uL (0.1-1.2); Monocytes Percent Auto 8.9 % (2-11); Neutrophils Absolute Auto 5.6 x10*3/uL (2.0-8.3); Neutrophils Percent Auto 67.4 % (45-73); Platelet Count 238 X10*3/uL (160-400); Red Cell Distribution Width 13.4 % (11.0-16.0); White Blood Count 8.4 X10*3/uL (4.8-10.8)
[2023-09-19 12:10] LABS: Anion Gap 12 (12-20); Blood Urea Nitrogen 18 mg/dL (9-16); Calcium 9.6 mg/dL (8.4-10.2); Carbon Dioxide 29 mmol/L (22-29); Chloride 107 mmol/L (96-108); Creatinine Clr Calc Pharmacy 39.6; Estimated Glomerular Filt Rate > 60; Glucose Random 124 mg/dL (60-115); Potassium 3.8 mmol/L (3.3-5.1); Sodium 144 mmol/L (135-145)
[2023-09-19 12:20] LABS: Troponin-I High Sensitivity < 2.7 ng/L (<3.5-17.0)
--- NOTE | 2023-09-19 12:48 | ED_ITS ---
HPI - Chest Pain General Chief Complaint: Chest Pain Stated Complaint: NAUSEA,VOMITING,CP,HIGH BP 148/90 PER EMS Time Seen by Provider: 09/19/23 12:47 Source: EMS and other (custodial transfer notes) Mode of arrival: EMS Limitations: other (Unreliable informant) History of Present Illness HPI narrative: 88-year-old female with history of sobriety dermatitis, diabetes, hyperlipidemia, dementia, mood disorder, anxiety who was sent to the emergency department from her nursing facility, [facility] for evaluation of ?patient complaining of burning chest, vomiting increased BP ?. Vital signs sent in from the nursing facility or as follows BP 153/78, heart rate 67, temperature 97.5 degrees F. ED nurse received the report from the paramedics that the patient also complained of nausea vomiting and had brown emesis. I did use a automotive parts interpreter to talk to the patient. The patient is not oriented to her situation. She made a statement that she wanted to buy something for her daughter's birds and that she does all the cooking at home. When asked if she was having chest pain or pain anywhere she said no. She told us that she would not take any medicines from us here and she would only take her medications that she has at home. Related Data Previous Rx's Medication Instructions Recorded cefpodoxime 200 mg tablet 200 mg PO BID #20 tabs 01/07/21 Allergies Allergy/AdvReac Type Severity Reaction Status Date / Time aspirin AdvReac Stomach Verified 09/19/23 11:22 Upset Review of Systems 2 Review of Systems: Yes all other systems are reviewed and are negative PMFSH Past Medical History Medical History Seborrheic dermatitis Vitamin D deficiency Diabetes type 2, controlled Hyperlipemia Dementia Social History Social History Smoked in Last 30 Days: No Use of substances other than those prescribed or required for medical reasons: No Advance Directives: No Advance Directives Information Provided: No Physical Exam 2 Vital Signs: Vital Signs: Last Vital Signs Temp 97.7 F 09/19/23 11:22 Pulse 66 09/19/23 11:22 Resp 18 09/19/23 11:22 BP 157/60 H 09/19/23 11:22 Pulse Ox 97 09/19/23 11:22 O2 Del Method Room Air 09/19/23 11:22 BMI result Body Mass Index 24.2 Vital signs revealed an elevated blood pressure of 156 over the over 60. Exam: General: Awake, alert in no distress. Patient is sitting in the room talking out loud to herself in very rapid and loud [place]. Patient lacks insight as to why she is here. Head: Normocephalic, atraumatic EENT: PERRL, Lids normal, sclera normal, conjunctiva normal, nose normal , ears normal, throat without erythema or exudates Neck: Supple, no adenopathy, no trachea midline or C-spine tenderness Lung: breath sounds symmetric, no wheezing, rales or rhonchi Chest: symmetric movement, nontender Heart: regular rate and rhythm, normal S1, S2 no murmurs or rubs Abdomen: soft, non-tender, nondistended, normal bowel sounds Back: no vertebral tenderness, no CVAT Extremities: no deformities, moves all extremities symmetrically Neuro: Awake, alert, oriented person only, normal speech, cranial nerves intact, moves all extremities symmetrically Medical Decision Making Medical Decision Making [facility] Narrative: 88-year-old female with history of sobriety dermatitis, diabetes, hyperlipidemia, dementia, mood disorder, anxiety who was sent to the emergency department from her nursing facility, [facility] for evaluation of burning chest pain, nausea with vomiting and elevated blood pressure. Patient had no complaints. The patient is an unreliable informant. She is sitting on the stretcher talking in a loud voice to herself. Patient's blood pressure was elevated at 157/60. Patient's physical examination was unremarkable. Following evaluation was ordered: CBC, BMP, troponin, EKG. 13:15 My interpretation patient's laboratory evaluation is as follows: Mild anemia with an H&H of 11.8 and 37-chronic. BUN is elevated 18. Glucose elevated 124. High sensitive troponin I was below detectable limits. The patient is refusing to take any oral medications, drink order eat food. At this time I do not think that the patient has cardiac cause for chest pain there 1st will be discharged back to her care facility. Differential Diagnosis Differential Diagnoses: The differential diagnosis associated with the presentation includes Differential diagnosis includes was not limited to myocardial infarction, myocardial ischemia, chest wall pain Admission/Observation Consideration of admission/observation: Escalation of care including admission/observation considered Lab Data [facility] Lab Attestation statement: I reviewed the patient's lab results. 09/19/23 11:46 09/19/23 11:46 Labs: Lab Results 09/19/23 Range/Units 11:46 WBC 8.4 (4.8-10.8) X10*3/uL RBC 3.90 L (4.20-5.50) X10*6/uL Hgb 11.8 L (12.0-16.0) g/dl Hct 37.7 (37.0-47.0) % MCV 96.7 (80.0-98.0) fL MCH 30.3 (27.0-33.0) pg MCHC 31.3 (31.0-35.0) g/dl RDW 13.4 (11.0-16.0) % Plt Count 238 (160-400) X10*3/uL MPV 10.7 (9.4-12.3) fL Immature Gran % (Auto) 0.2 (0.0-0.4) % Neut % (Auto) 67.4 (45-73) % Lymph % (Auto) 21.9 (20-40) % [place] % (Auto) 8.9 (2-11) % Eos % (Auto) 1.4 (0-4) % Baso % (Auto) 0.2 (0-2) % Lymph # (Auto) 1.8 (1.2-4.9) X10*3/uL [place] # (Auto) 0.8 (0.1-1.2) X10*3/uL Eos # (Auto) 0.1 (0.0-0.4) X10*3/uL Baso # (Auto) 0.0 (0.0-0.2) X10*3/uL Abs Immat Gran (auto) 0.02 (0.00-0.03) X10*3/uL Absolute Neuts (auto) 5.6 (2.0-8.3) x10*3/uL Absolute Nucleated RBC 0.000 (0.0-0.012) X10*3/uL Nucleated RBC % (auto) 0.0 (0.0-0.2) /100WBC Sodium 144 (135-145) mmol/L Potassium 3.8 (3.3-5.1) mmol/L Chloride 107 (96-108) mmol/L Carbon Dioxide 29 (22-29) mmol/L Anion Gap 12 (12-20) BUN 18 H (9-16) mg/dL Creatinine 0.82 (0.5-1.4) mg/dL Estim Creat Clear Calc 39.6 Estimated GFR > 60 Random Glucose 124 H (60-115) mg/dL Calcium 9.6 D (8.4-10.2) mg/dL Troponin I High Sens < 2.7 (<3.5-17.0) ng/L Independent Interpretation I performed an independent interpretation of an: EKG Interpretation: My interpretation of the patient's 12 EKG done at 11:32 hours is as follows: Normal sinus rhythm rate of 73, normal TX interval, QRS duration QTC interval, no ST segment elevation, no ST segment depression, no PACs, no PVCs no significant P-waves abnormalities. External Record Review External record reviewed: Outpatient record Chronic Conditions Patient?s care impacted by: Diabetes and Other (Dementia) Discharge Plan Discharge Clinical Impression: Chest pain Qualifiers: Chest pain type: unspecified Qualified Code(s): R07.9 - Chest pain, unspecified Vomiting Qualifiers: Migraine intractability: nonintractable Patient Disposition: [facility] Transfer Details: Return back to [facility] Additional Instructions: Your blood work was unremarkable. Your high sensitive troponin I, which is marker of heart damage, was below detectable limits which is reassuring. Your EKG was normal. Continue taking medications as prescribed by your providers Follow-up with your doctor in 2 days. Please return to the emergency department if your symptoms get worse or if you develop any symptoms that are concerning to you. Prescriptions: No Action cefpodoxime 200 mg tablet 200 mg PO BID Qty: 20 0RF Rx Instructions: must administer with a meal/food
--- NOTE | 2023-09-19 13:08 | PC.NURSE ---
pt denies chest pain. pt denies anything bothering her. pt spoke to doctor with bus driver/monitor. Pt refusing water and food for PO challenge. notified
--- NOTE | 2023-09-19 13:42 | PC.NURSE ---
report given to nurse at [facility].
[2023-09-19 17:07] VITALS: PULSE 75; RESP 18; TEMP 36.7; O2SAT 98
== END 2023-09-19 17:10 ==
PROVIDERS: Emergency Provider Emergency Medicine Emergency Medical Services; PCP Family Medicine
DX: R07.89 Other chest pain (principal); G43.909 Migraine, unspecified, not intractable, without status migrainosus; F03.90 Unspecified dementia, unspecified severity, without behavioral disturbance, psychotic disturbance, mood disturbance, and anxiety; R11.2 Nausea with vomiting, unspecified; E11.9 Type 2 diabetes mellitus without complications; Z79.899 Other long term (current) drug therapy
CPT/HCPCS: 36415; 80048; 84484; 85025; 93005; 99283; 99284

== ENCOUNTER → 2023-09-19 11:21 | Outpatient (BNV) | payer MEDICARE, MEDICAID, SELFPAY | PROVIDERS: Emergency Provider Emergency Medicine Emergency Medical Services; PCP Family Medicine; Visit Provider Internal Medicine Cardiovascular Disease | DX: I49.9 Cardiac arrhythmia, unspecified (principal) | CPT/HCPCS: 93010 ==

== ENCOUNTER 2024-04-11 11:07 | Inpatient (IN) | payer MEDICARE, MEDICAID, SELFPAY ==
[2024-04-11] VITALS (10 sets, daily range): BP systolic 112–158; BP diastolic 42–119; PULSE 79–157; RESP 16–34; TEMP 36.2–39.1; O2SAT 91–97; BMI 25.4
--- NOTE | 2024-04-11 | ECG_ITS ---
Test Reason : am Blood Pressure : / mmHG Vent. Rate : 097 BPM Atrial Rate : 097 BPM P-R Int : 164 ms QRS Dur : 062 ms QT Int : 350 ms P-R-T Axes : 030 -19 051 degrees QTc Int : 444 ms Sinus rhythm with Premature atrial complexes with Aberrant conduction Low voltage QRS Borderline ECG When compared with ECG of 19-SEP-2023 11:32, Aberrant conduction is now Present Referred By: Millie Llamas Electronically Signed By:Ruy Gupta
--- NOTE | ~2024-04-11 | XR_ITS ---
EXAMINATION: XR CHEST CLINICAL INFORMATION: Question aspiration COMPARISON: Chest x-ray from 11/10/2022 TECHNIQUE: Frontal view of the chest was obtained. FINDINGS: Heart is top normal in size. Hiatal hernia is seen extending into the chest. There is increased patchy opacity in the right lung base which could represent aspiration pneumonia. Left lung is clear. XR/XR chest 1V IMPRESSION: Patchy opacity in the right lung base which could represent aspiration pneumonia.
[2024-04-11 11:23] LABS: Glucose, Whole Blood 143 mg/dL (60-115)
[2024-04-11 11:52] LABS: MANUAL DIFF FLAG NO
--- NOTE | 2024-04-11 11:59 | ED_ITS ---
HPI - Altered Mental Status General Chief Complaint: Altered Mental Status Stated Complaint: TREMMORS, HIGH BS, PER EMS Time Seen by Provider: 04/11/24 11:31 History of Present Illness HPI narrative: Patient is an 89-year-old female from [facility] sent in for change in mental status after eating. Patient is noted to have tremor. Baseline has dementia. Patient is a full code. EMS stated patient's O2 sat was low place patient on a non-rebreather. Patient's sugar in the emergency department was 149. She is unable to give detailed answers. Baseline patient is oriented times 0. Related Data Home Medications ?Medication ?Instructions ?Recorded ?Confirmed acetaminophen 325 mg tablet 650 mg PO Q6H PRN Fever 04/11/24 04/11/24 (Tylenol) acetaminophen 325 mg tablet 650 mg PO Q8H 04/11/24 04/11/24 (Tylenol) bisacodyl 10 mg rectal suppository 10 mg OR DAILY PRN Constipation 04/11/24 04/11/24 calcium carbonate 500 mg PO TID 04/11/24 04/11/24 cholecalciferol (vitamin D3) 25 25 mcg PO DAILY 04/11/24 04/11/24 mcg (1,000 unit) tablet (Vitamin D3) gabapentin 300 mg capsule 300 mg PO DAILY@1800 04/11/24 04/11/24 ketoconazole 2 % shampoo 1 appl topical TUTHSA@0900 04/11/24 04/11/24 ketoconazole 2 % topical cream 1 appl topical BID 04/11/24 04/11/24 lidocaine 4 % topical cream 1 appl topical BID PRN right 04/11/24 04/11/24 shoulder pain magnesium hydroxide 400 mg/5 mL 30 ml PO DAILY PRN Constipation 04/11/24 04/11/24 oral suspension (Milk of Magnesia) melatonin 5 mg capsule 5 mg PO BEDTIME 04/11/24 04/11/24 sodium phosphates 19 gram-7 118 ml OR DAILY PRN Constipation 04/11/24 04/11/24 gram/118 mL enema (Fleet Enema) trazodone 50 mg tablet 25 mg PO BID PRN anxiety/agitation 04/11/24 04/11/24 trazodone 50 mg tablet 25 mg PO DAILY@1400 04/11/24 04/11/24 white petrolatum 41 % topical 1 appl topical BID 04/11/24 04/11/24 ointment (Aquaphor Original) white petrolatum 41 % topical 1 appl topical DAILY PRN DERMATITIS 04/11/24 04/11/24 ointment (Aquaphor Original) Allergies Allergy/AdvReac Type Severity Reaction Status Date / Time aspirin AdvReac Stomach Verified 04/11/24 11:23 Upset Review of Systems 2 Review of Systems: Unable to obtain review of systems [facility] Past Medical History Medical History Seborrheic dermatitis Vitamin D deficiency Diabetes type 2, controlled Hyperlipemia Dementia Social History Social History Unable to assess alcohol history related to: Unable to respond Use of substances other than those prescribed or required for medical reasons: Unable to respond Advance Directives: No Do you have a plan to hurt others: No Plan Physical Exam ED Vital Signs: Vital Signs - 24 hr 04/11/24 11:19 04/11/24 12:00 04/11/24 13:21 Temperature 102.4 F H Pulse Rate 107 H 118 H 94 Respiratory Rate 28 H 19 18 Blood Pressure 158/72 H 150/119 H 127/53 L Pulse Oximetry 96 93 95 Oxygen Delivery Method Room Air Room Air Room Air 04/11/24 13:45 04/11/24 13:45 Temperature Pulse Rate Respiratory Rate Blood Pressure 131/78 116/43 L Pulse Oximetry Oxygen Delivery Method BMI result Body Mass Index 25.4 Appearance: Alert. Oriented times 0. Very weak Eyes: Pupils equal, round and reactive to light. ENT: Pharynx normal. Neck: Normal inspection. Neck supple. No lymph nodes noted. No crepitus CVS: Tachycardic Respiratory: Diminished breath sounds bilaterally Abdomen: Soft and nontender. No rigidity. No distention. good BS x4 Skin: Skin warm and dry. Normal skin color. Normal skin turgor. Extremities: No lower extremity edema. Neurovascular intact to all extremities. No Lacerations. No Rash Neuro: Oriented X 0. Moving extremities. Speech is not make sense. Medications Administered Discontinued Medications Generic Name Dose Route Start Last Admin Trade Name Freq PRN Reason Stop Dose Admin Acetaminophen 650 mg 04/11/24 12:00 04/11/24 12:07 Acetaminophen Supp 650 Mg Supp.Rect OR 04/11/24 12:01 650 mg ONCE ONE Administration Sodium Chloride 1,000 mls @ 999 mls/hr 04/11/24 12:00 04/11/24 13:41 Ns IV 04/11/24 13:00 Infused .Q1H1M LIA Infusion Sodium Chloride 1,000 mls @ 999 mls/hr 04/11/24 12:00 04/11/24 13:42 Ns IV 04/11/24 13:00 999 mls/hr .Q1H1M LIA Administration Cefepime HCl 1 gm/ Sodium 50 mls @ 100 mls/hr 04/11/24 12:01 04/11/24 12:46 Chloride IV 04/11/24 12:30 Infused ONCE ONE Infusion Metronidazole 500 mg in 100 mls @ 100 mls/hr 04/11/24 12:53 04/11/24 13:42 Flagyl IV 04/11/24 13:52 100 mls/hr ONCE ONE Administration Medical Decision Making Medical Decision Making MDM Narrative: Patient's sugar is 149. There is no evidence for hypoglycemia. Patient has a fever of 102.4. Cultures obtained. Sepsis alert was called. 30 cc/kilos fluids ordered. Patient's previous culture was reviewed. Sensitive to Rocephin. Given cefepime to cover empirically for possible healthcare acquired pneumonia as patient is from [facility]. Patient's white count is elevated. Awaiting admission. Patient's lactate is elevated. Repeat lactate is still pending. Repeat focal exam for sepsis was done. Patient's heart rate is down. Symptoms seems to be improving. Patient is chest x-ray by my interpretation showed a right lower lobe infiltrate. Cefepime already given. Flagyl was added for possible aspiration. Urine showed a likely UTI. Cefepime will cover. Currently in stable condition. Case discussed with hospitalist team. Being admitted. On review of patient's medication patient is a full code. Repeat lactate is normal 1.1. Repeat focal exam showed patient is improving. Patient is being admitted. Differential Diagnosis Differential Diagnoses: The differential diagnosis associated with the presentation includes Urinary tract infection, pneumonia Admission/Observation Consideration of admission/observation: Escalation of care including admission/observation considered Consult Healthcare Provider Management of the patient was discussed with: Hospitalist Lab Data MDM Lab Attestation statement: I reviewed the patient's lab results. 04/11/24 11:47 04/11/24 11:47 Labs: Lab Results 04/11/24 04/11/24 04/11/24 Range/Units 11:19 11:47 12:05 WBC 13.0 H (4.8-10.8) X10*3/uL RBC 3.83 L (4.20-5.50) X10*6/uL Hgb 11.9 L (12.0-16.0) g/dl Hct 36.9 L (37.0-47.0) % MCV 96.3 (80.0-98.0) fL MCH 31.1 (27.0-33.0) pg MCHC 32.2 (31.0-35.0) g/dl RDW 14.4 (11.0-16.0) % Plt Count 295 (160-400) X10*3/uL MPV 10.2 (9.4-12.3) fL Immature Gran % (Auto) 0.4 (0.0-0.4) % Neut % (Auto) 87.2 H (45-73) % Lymph % (Auto) 6.9 L (20-40) % [place] % (Auto) 5.1 (2-11) % Eos % (Auto) 0.2 (0-4) % Baso % (Auto) 0.2 (0-2) % Lymph # (Auto) 0.9 L (1.2-4.9) X10*3/uL [place] # (Auto) 0.7 (0.1-1.2) X10*3/uL Eos # (Auto) 0.0 (0.0-0.4) X10*3/uL Baso # (Auto) 0.0 (0.0-0.2) X10*3/uL Abs Immat Gran (auto) 0.05 H (0.00-0.03) X10*3/uL Absolute Neuts (auto) 11.4 H (2.0-8.3) x10*3/uL Absolute Nucleated RBC 0.000 (0.0-0.012) X10*3/uL Nucleated RBC % (auto) 0.0 (0.0-0.2) /100WBC Sodium 145 (135-145) mmol/L Potassium 4.6 (3.3-5.1) mmol/L Chloride 106 (96-108) mmol/L Carbon Dioxide 28 (22-29) mmol/L Anion Gap 16 (12-20) BUN 15 (9-16) mg/dL Creatinine 0.81 (0.5-1.4) mg/dL Estim Creat Clear Calc 38.5 Estimated GFR > 60 POC Glucose 143 H (60-115) mg/dL Random Glucose 192 H (60-115) mg/dL Lactic Acid 3.4 H* (0.5-2.0) mmol/L Lactic Acid F/U @ 2Hr (0.5-2.0) mmol/L Calcium 9.8 (8.4-10.2) mg/dL Total Bilirubin 0.6 (0.0-1.0) mg/dL Direct Bilirubin 0.2 (0.0-0.5) mg/dL AST 26 (5-31) U/L ALT 24 (0-31) U/L Alkaline Phosphatase 82 (39-117) U/L Total Protein 7.4 (6.5-8.0) g/dL Albumin 4.2 (3.5-5.0) g/dL Urine Color Urine Appearance Urine pH (5.0-9.0) Ur Specific [place] (1.005-1.025) Urine Protein (Neg-Trace) mg/dL Urine Glucose (UA) (Negative) mg/dL Urine Ketones (Negative) mg/dL Urine Blood (Negative) Urine Nitrite (Negative) Ur Leukocyte Esterase (Negative) Urine RBC (0-2) /HPF Urine WBC (0-5) /HPF Ur Squamous Epith Cells (0-2) /HPF Urine Bacteria (None Seen) Hyaline Casts (0-2) /LPF Influenza Type A (PCR) NEGATIVE (Negative) Influenza Type B (PCR) NEGATIVE (Negative) RSV RNA Qual (PCR) NEGATIVE (Negative) SARS-CoV-2 RNA (RT-PCR) NEGATIVE (Negative) 04/11/24 04/11/24 Range/Units 12:17 14:14 WBC (4.8-10.8) X10*3/uL RBC (4.20-5.50) X10*6/uL Hgb (12.0-16.0) g/dl Hct (37.0-47.0) % MCV (80.0-98.0) fL MCH (27.0-33.0) pg MCHC (31.0-35.0) g/dl RDW (11.0-16.0) % Plt Count (160-400) X10*3/uL MPV (9.4-12.3) fL Immature Gran % (Auto) (0.0-0.4) % Neut % (Auto) (45-73) % Lymph % (Auto) (20-40) % [place] % (Auto) (2-11) % Eos % (Auto) (0-4) % Baso % (Auto) (0-2) % Lymph # (Auto) (1.2-4.9) X10*3/uL [place] # (Auto) (0.1-1.2) X10*3/uL Eos # (Auto) (0.0-0.4) X10*3/uL Baso # (Auto) (0.0-0.2) X10*3/uL Abs Immat Gran (auto) (0.00-0.03) X10*3/uL Absolute Neuts (auto) (2.0-8.3) x10*3/uL Absolute Nucleated RBC (0.0-0.012) X10*3/uL Nucleated RBC % (auto) (0.0-0.2) /100WBC Sodium (135-145) mmol/L Potassium (3.3-5.1) mmol/L Chloride (96-108) mmol/L Carbon Dioxide (22-29) mmol/L Anion Gap (12-20) BUN (9-16) mg/dL Creatinine (0.5-1.4) mg/dL Estim Creat Clear Calc Estimated GFR POC Glucose (60-115) mg/dL Random Glucose (60-115) mg/dL Lactic Acid (0.5-2.0) mmol/L Lactic Acid F/U @ 2Hr 1.1 (0.5-2.0) mmol/L Calcium (8.4-10.2) mg/dL Total Bilirubin (0.0-1.0) mg/dL Direct Bilirubin (0.0-0.5) mg/dL AST (5-31) U/L ALT (0-31) U/L Alkaline Phosphatase (39-117) U/L Total Protein (6.5-8.0) g/dL Albumin (3.5-5.0) g/dL Urine Color Yellow Urine Appearance Clear Urine pH 5.5 (5.0-9.0) Ur Specific [place] 1.015 (1.005-1.025) Urine Protein Negative (Neg-Trace) mg/dL Urine Glucose (UA) Negative (Negative) mg/dL Urine Ketones Negative (Negative) mg/dL Urine Blood Negative (Negative) Urine Nitrite Positive H (Negative) Ur Leukocyte Esterase Moderate (2+) H (Negative) Urine RBC 0-2 (0-2) /HPF Urine WBC 11-20 (0-5) /HPF Ur Squamous Epith Cells 0-2 (0-2) /HPF Urine Bacteria 4+ (None Seen) Hyaline Casts 0-2 (0-2) /LPF Influenza Type A (PCR) (Negative) Influenza Type B (PCR) (Negative) RSV RNA Qual (PCR) (Negative) SARS-CoV-2 RNA (RT-PCR) (Negative) Independent Interpretation I performed an independent interpretation of an: Plain X-Ray (My interpretation patient's chest x-ray showed a possible right lower lobe infiltrate.) Radiology Impression Discussion of test interpretation with radiology: I have reviewed the radiologist's reading. External Record Review External record reviewed: Inpatient record and Outpatient record long term record reviewed Chronic Conditions Dementia Social Determinants Patient?s care significantly limited by Social Determinants of Health including: Problems related to primary support group Critical Care Time Critical Care Time Critical Care Time: Yes Total Critical Care Time: 40 Attestation: I have personally provided 40 minutes of critical care time exclusive of time spent on separately billable procedures. ?Time includes review of lab data, radiology results, discussion with consultants, and monitoring for potential decompensation. ?Interventions were performed as documented above Discharge Plan Discharge Clinical Impression: Altered mental status, Pneumonia, Urinary tract infection Patient Disposition: Admitted As Inpatient
[2024-04-11 12:01] LABS: Basophils Percent Auto 0.2 % (0-2); Eosinophils Percent Auto 0.2 % (0-4); Hematocrit 36.9 % (37.0-47.0); Hemoglobin 11.9 g/dl (12.0-16.0); Imm Gran Abs Auto 0.05 X10*3/uL (0.00-0.03); Imm Gran Pct Auto 0.4 % (0.0-0.4); Lymphocytes Absolute Auto 0.9 X10*3/uL (1.2-4.9); Lymphocytes Percent Auto 6.9 % (20-40); Mean Corpuscular HGB Conc 32.2 g/dl (31.0-35.0); Mean Corpuscular Hemoglobin 31.1 pg (27.0-33.0); Mean Corpuscular Volume 96.3 fL (80.0-98.0); Mean Platelet Volume 10.2 fL (9.4-12.3); Monocytes Absolute Auto 0.7 X10*3/uL (0.1-1.2); Monocytes Percent Auto 5.1 % (2-11); Neutrophils Absolute Auto 11.4 x10*3/uL (2.0-8.3); Neutrophils Percent Auto 87.2 % (45-73); Platelet Count 295 X10*3/uL (160-400); Red Blood Count 3.83 X10*6/uL (4.20-5.50); Red Cell Distribution Width 14.4 % (11.0-16.0)
[2024-04-11] MEDS: Acetaminophen Supp 650 MG SUPP.RECT PR (12:07)
[2024-04-11] MEDS: 0.9 % Sodium Chloride 1,000 ML 999 ML IV ×2 (12:08→13:42)
[2024-04-11] MEDS: cefEPime HCl 1 GM in 0.9 % Sodium Chloride 50 ML IV (12:11)
[2024-04-11 12:14] LABS: Anion Gap 16 (12-20); Blood Urea Nitrogen 15 mg/dL (9-16); Calcium 9.8 mg/dL (8.4-10.2); Carbon Dioxide 28 mmol/L (22-29); Chloride 106 mmol/L (96-108); Creatinine Clr Calc Pharmacy 38.5; Estimated Glomerular Filt Rate > 60; Glucose Random 192 mg/dL (60-115); Potassium 4.6 mmol/L (3.3-5.1); Sodium 145 mmol/L (135-145)
[2024-04-11 12:16] LABS: Lactic Acid 3.4 mmol/L (0.5-2.0)
[2024-04-11 12:26] LABS: Appearance Urine Clear; Color Urine Yellow; Glucose Urine UA Negative (Negative); Leukocyte Esterase Urine Moderate (2+) (Negative); Nitrite Urine Positive (Negative); PH 5.5 (5.0-9.0); Specific Gravity - Urine 1.015 (1.005-1.025); UMIC TRIGGER UACC YES; Urine Blood Negative (Negative); Urine Ketones Negative (Negative); Urine Protein Negative (Neg-Trace)
--- NOTE | 2024-04-11 12:29 | MHC.EDTECH ---
Unable to obtain EKG at this time per RN okay to wait.
[2024-04-11 12:55] LABS: Influenza A PCR NEGATIVE (Negative); Influenza B PCR NEGATIVE (Negative); Resp Syncy Virus RNA Qual PCR NEGATIVE (Negative); SARS COV2 PCR INHOUSE NEGATIVE (Negative)
[2024-04-11 12:56] LABS: Bacteria Urine 4+ (None Seen); Hyaline Casts Urine 0-2 /LPF (0-2); RBC Urine 0-2 /HPF (0-2); Squamous Epithelial Cell Urine 0-2 /HPF (0-2); UACC Culture Trigger YES
[2024-04-11] MEDS: metroNIDAZOLE/NS 500 MG/100 ML PIGGYBACK 100 MG IV (13:42)
[2024-04-11 13:50] LABS: Reflex Lactate? Lactic Acid Added
--- NOTE | 2024-04-11 14:20 | PHA.MEDREC ---
Pharmacy Consult ? Medication Reconciliation Pharmacy has completed the medication reconciliation. List from [facility].
[2024-04-11 14:39] LABS: ~Lactic Acid-LAB USE ONLY 1.1 mmol/L (0.5-2.0)
[2024-04-11 14:44] LABS: Alanine Aminotransferase 24 U/L (0-31); Albumin Level 4.2 g/dL (3.5-5.0); Alkaline Phosphatase 82 U/L (39-117); Aspartate Amino Transferase 26 U/L (5-31); Bilirubin Direct 0.2 mg/dL (0.0-0.5); Bilirubin Total 0.6 mg/dL (0.0-1.0); Total Protein 7.4 g/dL (6.5-8.0)
--- NOTE | 2024-04-11 14:44 | PM.IMHP ---
History of Present Illness Date of Service: 04/11/24 Chief Complaint: Confusion, fever An 89 years old lady with PMH of Dementia coming from [facility] for change of mental status and fever. The patient has dementia and unable to participate in history. information mainly from ED provider and documentation. EMS reported low O2 and placing her on O2 as they picked her from Facilty where they noticed changes in mentation today after eating. In ED she was found to have fever of 102, Leukocytosis with elevated LA. CXR showing pneumonia. UA possible UTI. Admitted for further evaluation and treatment. Review of Systems Review of Systems: Yes Unobtainable due to mental status [facility] Medical History Seborrheic dermatitis Vitamin D deficiency Diabetes type 2, controlled Hyperlipemia Dementia Social History Unable to assess alcohol history related to: Unable to respond Use of substances other than those prescribed or required for medical reasons: Unable to respond Advance Directives: No Do you have a plan to hurt others: No Plan Meds Allergies Allergy/AdvReac Type Severity Reaction Status Date / Time aspirin AdvReac Stomach Verified 04/11/24 11:23 Upset Active Medications: Current Medications Acetaminophen (Acetaminophen 325 Mg Tablet) 650 mg PO Q6H PRN PRN Reason: Fever Acetaminophen (Acetaminophen 325 Mg Tablet) 650 mg PO TID LIA Acetaminophen (Acetaminophen 325 Mg Tablet) 650 mg PO Q6H PRN PRN Reason: Pain, Mild (Pain Scale 1-3), fever or headache Bisacodyl (Bisacodyl 10 Mg Supp.Rect) 10 mg OK DAILY PRN PRN Reason: Constipation Calcium Carbonate (Calcium Carbonate 750 Mg Tab.Chew) 750 mg PO Q4H PRN PRN Reason: Heartburn Enoxaparin Sodium (Enoxaparin Sodium 40 Mg/0.4 Ml Syringe) 40 mg SUBCUT Q24H LIA Azithromycin 500 mg/ Sodium (Chloride) 250 mls @ 125 mls/hr IV Q24H LIA Ceftriaxone Sodium 1 gm/ (Sodium Chloride) 50 mls @ 100 mls/hr IV Q24H LIA Sodium Chloride (Ns) 1,000 mls @ 75 mls/hr IVCONT .[id number] LIA Magnesium Hydroxide (Milk Of Magnesia 30 Ml Oral.Susp) 30 ml PO DAILY PRN PRN Reason: Constipation Melatonin (Melatonin 3 Mg Tablet) 6 mg PO BEDTIME PRN PRN Reason: Insomnia Non-Formulary Medication (Ketoconazole) 1 appl TOPICAL BID [facility] Ondansetron HCl (Ondansetron Hcl 4 Mg/2 Ml Vial) 4 mg IVPUSH Q8H PRN PRN Reason: Nausea and Vomiting Sodium Biphosphate/Sodium Phosphate (Sodium Phosphate,[place]-Dibasic 133 Ml Enema) 118 ml OK DAILY PRN PRN Reason: Constipation Sodium Chloride (0.9 % Sodium Chloride Flush 3 Ml Syringe) 3 ml IVFLUSH QSHIFT [facility] Home Medications ?Medication ?Instructions ?Recorded ?Confirmed ?Last Taken ?Type acetaminophen 325 mg tablet 650 mg PO Q6H PRN Fever 04/11/24 04/11/24 Unknown History (Tylenol) acetaminophen 325 mg tablet 650 mg PO Q8H 04/11/24 04/11/24 Unknown History (Tylenol) bisacodyl 10 mg rectal suppository 10 mg OK DAILY PRN Constipation 04/11/24 04/11/24 Unknown History calcium carbonate 500 mg PO TID 04/11/24 04/11/24 Unknown History cholecalciferol (vitamin D3) 25 25 mcg PO DAILY 04/11/24 04/11/24 Unknown History mcg (1,000 unit) tablet (Vitamin D3) gabapentin 300 mg capsule 300 mg PO DAILY@1800 04/11/24 04/11/24 Unknown History ketoconazole 2 % shampoo 1 appl topical TUTHSA@0900 04/11/24 04/11/24 Unknown History ketoconazole 2 % topical cream 1 appl topical BID 04/11/24 04/11/24 Unknown History lidocaine 4 % topical cream 1 appl topical BID PRN right 04/11/24 04/11/24 Unknown History shoulder pain magnesium hydroxide 400 mg/5 mL 30 ml PO DAILY PRN Constipation 04/11/24 04/11/24 Unknown History oral suspension (Milk of Magnesia) melatonin 5 mg capsule 5 mg PO BEDTIME 04/11/24 04/11/24 Unknown History sodium phosphates 19 gram-7 118 ml OK DAILY PRN Constipation 04/11/24 04/11/24 Unknown History gram/118 mL enema (Fleet Enema) trazodone 50 mg tablet 25 mg PO BID PRN anxiety/agitation 04/11/24 04/11/24 Unknown History trazodone 50 mg tablet 25 mg PO DAILY@1400 04/11/24 04/11/24 Unknown History white petrolatum 41 % topical 1 appl topical BID 04/11/24 04/11/24 Unknown History ointment (Aquaphor Original) white petrolatum 41 % topical 1 appl topical DAILY PRN DERMATITIS 04/11/24 04/11/24 Unknown History ointment (Aquaphor Original) Physical Exam Vital Signs and Narrative: Vital Signs: Last Vital Signs Temp 102.4 F H 04/11/24 11:19 Pulse 94 04/11/24 13:21 Resp 18 04/11/24 13:21 BP 116/43 L 04/11/24 13:45 Pulse Ox 95 04/11/24 13:21 O2 Del Method Room Air 04/11/24 13:21 BMI result Body Mass Index 25.4 Const: Other: Constitutional : lethargic Cardiovascular : RRR, no JVP, no lower extremity edema Respiratory : good bilateral air entry, RLL fine basal crackles Gastrointestinal: soft, lax, Normal bowel sounds, Non tender Skin : Warm, Dry Neurological : Alert with stimulation, confused and disoriented, No focal deficit Results Labs 04/11/24 11:47 04/11/24 11:47 Labs: Laboratory Results - last 24 hr 04/11/24 04/11/24 04/11/24 11:19 11:47 12:05 MCV 96.3 MCH 31.1 MCHC 32.2 RDW 14.4 Plt Count 295 MPV 10.2 Immature Gran % (Auto) 0.4 Neut % (Auto) 87.2 H Lymph % (Auto) 6.9 L [place] % (Auto) 5.1 Eos % (Auto) 0.2 Baso % (Auto) 0.2 Lymph # (Auto) 0.9 L [place] # (Auto) 0.7 Eos # (Auto) 0.0 Baso # (Auto) 0.0 Abs Immat Gran (auto) 0.05 H Absolute Neuts (auto) 11.4 H Absolute Nucleated RBC 0.000 Nucleated RBC % (auto) 0.0 Anion Gap 16 Estim Creat Clear Calc 38.5 Estimated GFR > 60 POC Glucose 143 H Random Glucose 192 H Lactic Acid 3.4 H* Lactic Acid F/U @ 2Hr Calcium 9.8 Urine Color Urine Appearance Urine pH Ur Specific [place] Urine Protein Urine Glucose (UA) Urine Ketones Urine Blood Urine Nitrite Ur Leukocyte Esterase Urine RBC Urine WBC Ur Squamous Epith Cells Urine Bacteria Hyaline Casts Influenza Type A (PCR) NEGATIVE Influenza Type B (PCR) NEGATIVE RSV RNA Qual (PCR) NEGATIVE SARS-CoV-2 RNA (RT-PCR) NEGATIVE 04/11/24 04/11/24 12:17 14:14 MCV MCH MCHC RDW Plt Count MPV Immature Gran % (Auto) Neut % (Auto) Lymph % (Auto) [place] % (Auto) Eos % (Auto) Baso % (Auto) Lymph # (Auto) [place] # (Auto) Eos # (Auto) Baso # (Auto) Abs Immat Gran (auto) Absolute Neuts (auto) Absolute Nucleated RBC Nucleated RBC % (auto) Anion Gap Estim Creat Clear Calc Estimated GFR POC Glucose Random Glucose Lactic Acid Lactic Acid F/U @ 2Hr 1.1 Calcium Urine Color Yellow Urine Appearance Clear Urine pH 5.5 Ur Specific [place] 1.015 Urine Protein Negative Urine Glucose (UA) Negative Urine Ketones Negative Urine Blood Negative Urine Nitrite Positive H Ur Leukocyte Esterase Moderate (2+) H Urine RBC 0-2 Urine WBC 11-20 Ur Squamous Epith Cells 0-2 Urine Bacteria 4+ Hyaline Casts 0-2 Influenza Type A (PCR) Influenza Type B (PCR) RSV RNA Qual (PCR) SARS-CoV-2 RNA (RT-PCR) Imaging Radiologist's Impressions: Impressions Chest X-Ray 04/11/24 11:45 IMPRESSION: Patchy opacity in the right lung base which could represent aspiration pneumonia. Assessment and Plan (1) Pneumonia: Status: Acute (2) Urinary tract infection: Status: Acute (3) Sepsis: Status: Acute (4) Toxic metabolic encephalopathy: Status: Acute (5) Lactic acidosis: Status: Acute Plan An 89 years old lady with PMH of Dementia coming from [facility] for change of mental status and fever. Sepsis 2/2 UTI and Pneumonia with Lactic acidosis Has fever, leukocytosis, tachycardia and tachypnea Lactic acidosis resolved after IVF CXR showing RLL infiltrates UA +ve for infection Pending cultures gentle IVF Start Azithromycin and Ceftriaxone Toxic metabolic encephalopathy 2/2 sepsis and polypharmacy treat infection hold home sedative meds DVT PPx Lovenox The patient will need 2 overnight hospital stay for treatment of sepsis pending final blood cultures Quality Stroke Does the patient have a stroke diagnosis?: No VTE Prior VTE?: No VTE Risk Level:: Medical - moderate - high VTE Device Contraindication: Treatment Not Indicated VTE Drug Contraindication: N/A - Med Ordered
[2024-04-11] MEDS: 0.9 % Sodium Chloride 1,000 ML 75 ML IVCONT (15:33)
[2024-04-11] MEDS: Acetaminophen 325 MG TABLET 650 MG PO (15:34)
[2024-04-11] MEDS: Azithromycin 500 MG in 0.9 % Sodium Chloride 250 ML 125 MG IV (15:43)
[2024-04-11] MEDS: Enoxaparin Sodium 40 MG/0.4 ML SYRINGE SUBCUT (15:53)
--- NOTE | 2024-04-11 19:10 | PC.NURSE ---
Pt seen in Main ED for admission risk assessment. Pt unable to participate in interview, obtained hx from provider notes/reports. Pt asleep on stretcher, no signs of respiratory distress - respirations even and unlabored. Pt is sami speaking only, comes from [facility] with AMS. Pt being treated for sepsis s/t UTI and ? PNA. Per ED RN, pt wearing brief on arrival to ED - likely incontinent at baseline. Plan of care ongoing.
[2024-04-11 21:51] LABS: Glucose, Whole Blood 115 mg/dL (60-115)
[2024-04-12] MEDS: 0.9 % Sodium Chloride 1,000 ML 75 ML IVCONT ×2 (03:48→16:23)
[2024-04-12 04:00] VITALS: BP 136/65; PULSE 70; RESP 16; TEMP 36.1; O2SAT 96
[2024-04-12 05:53] LABS: Hematocrit 31.3 % (37.0-47.0); Hemoglobin 10.1 g/dl (12.0-16.0); Mean Corpuscular HGB Conc 32.3 g/dl (31.0-35.0); Mean Corpuscular Hemoglobin 30.8 pg (27.0-33.0); Mean Corpuscular Volume 95.4 fL (80.0-98.0); Mean Platelet Volume 10.2 fL (9.4-12.3); Platelet Count 235 X10*3/uL (160-400); Red Blood Count 3.28 X10*6/uL (4.20-5.50); Red Cell Distribution Width 14.4 % (11.0-16.0); White Blood Count 13.1 X10*3/uL (4.8-10.8)
[2024-04-12 06:07] LABS: Anion Gap 10 (12-20); Blood Urea Nitrogen 10 mg/dL (9-16); Calcium 8.3 mg/dL (8.4-10.2); Carbon Dioxide 21 mmol/L (22-29); Chloride 113 mmol/L (96-108); Estimated Glomerular Filt Rate > 60; Glucose Random 103 mg/dL (60-115); Potassium 3.4 mmol/L (3.3-5.1); Sodium 141 mmol/L (135-145)
[2024-04-12 07:40] VITALS: BP 143/67; PULSE 68; RESP 16; TEMP 36.6; O2SAT 96
[2024-04-12] MEDS: cefTRIAXone sodium 1 GM in 0.9 % Sodium Chloride 50 ML IV (10:34)
--- NOTE | 2024-04-12 11:17 | MHC.CM.PN ---
Patient w/ dx dementia, from LT @ [facility]. Guardianship on file lists Essence Morales as guardian. However, document is . Return referral sent to [facility] w/ request for updated guardianship. Also LM for Essence's office - verbally delivered IMM via VM and requested updated paperwork. Copy of IMM left at bedside. PCP Jaiden Tinoco DP: Await updated guardianship documentation. Return to [facility] via BLS.
--- NOTE | 2024-04-12 11:58 | HO.PM.IMPN ---
Subjective Subjective Date of Service: 04/12/24 Interval History: remains altered, responde to stimuli had rough night, did not sleep and needed a sitter at the bedside no reported fever Review of Systems Unable to obtain review of systems Physical Exam Vital Signs: Vital Signs: Last Vital Signs Temp 97.8 F 04/12/24 07:40 Pulse 68 04/12/24 07:40 Resp 16 04/12/24 07:40 BP 143/67 H 04/12/24 07:40 Pulse Ox 96 04/12/24 07:40 O2 Del Method Room Air 04/12/24 07:40 BMI result Body Mass Index 25.4 Const: Other: Constitutional : lethargic, responds to stimuli Cardiovascular : RRR, no JVP, no lower extremity edema Respiratory : good bilateral air entry, RLL fine basal crackles Gastrointestinal: soft, lax, Normal bowel sounds, Non tender Skin : Warm, Dry Neurological : Alert with stimulation, confused and disoriented, No focal deficit Objective Data Active Medications Acetaminophen (Acetaminophen 325 Mg Tablet) 650 mg PO Q6H PRN PRN Reason: Fever Acetaminophen (Acetaminophen 325 Mg Tablet) 650 mg PO TID [facility] Last Admin: 04/12/24 08:04 Dose: Not Given Documented By: COTEMA Non-Admin Reason: Patient Refused Bisacodyl (Bisacodyl 10 Mg Supp.Rect) 10 mg TX DAILY PRN PRN Reason: Constipation Calcium Carbonate (Calcium Carbonate 750 Mg Tab.Chew) 750 mg PO Q4H PRN PRN Reason: Heartburn Clotrimazole (Clotrimazole 1 % Cream 15 Gm Tube) 1 appl TOPICAL BID [facility] Last Admin: 04/12/24 08:04 Dose: Not Given Documented By: COTEMA Non-Admin Reason: Patient Refused Enoxaparin Sodium (Enoxaparin Sodium 40 Mg/0.4 Ml Syringe) 40 mg SUBCUT Q24H [facility] Last Admin: 04/11/24 15:53 Dose: 40 mg Documented By: MECCA Azithromycin 500 mg/ Sodium (Chloride) 250 mls @ 125 mls/hr IV Q24H [facility] Last Infusion: 04/11/24 17:52 Dose: Infused Documented By: MECCA Ceftriaxone Sodium 1 gm/ (Sodium Chloride) 50 mls @ 100 mls/hr IV Q24H [facility] Last Infusion: 04/12/24 11:07 Dose: Infused Documented By: JAEL Sodium Chloride (Ns) 1,000 mls @ 75 mls/hr IVCONT .[id number] [facility] Last Admin: 04/12/24 03:48 Dose: 75 mls/hr Documented By: NAUMOC Magnesium Hydroxide (Milk Of Magnesia 30 Ml Oral.Susp) 30 ml PO DAILY PRN PRN Reason: Constipation Melatonin (Melatonin 3 Mg Tablet) 6 mg PO BEDTIME PRN PRN Reason: Insomnia Ondansetron HCl (Ondansetron Hcl 4 Mg/2 Ml Vial) 4 mg IVPUSH Q8H PRN PRN Reason: Nausea and Vomiting Sodium Biphosphate/Sodium Phosphate (Sodium Phosphate,Mellette-Dibasic 133 Ml Enema) 118 ml [place] DAILY PRN PRN Reason: Constipation Sodium Chloride (0.9 % Sodium Chloride Flush 3 Ml Syringe) 3 ml IVFLUSH QSHIFT [facility] Last Admin: 04/12/24 07:16 Dose: Not Given Documented By: COTMARISA Non-Admin Reason: IV Running Labs 04/12/24 05:40 04/12/24 05:40 Labs: Laboratory Results - last 24 hr 04/11/24 04/11/24 04/11/24 11:47 12:05 12:17 MCV 96.3 MCH 31.1 MCHC 32.2 RDW 14.4 Plt Count 295 MPV 10.2 Immature Gran % (Auto) 0.4 Neut % (Auto) 87.2 H Lymph % (Auto) 6.9 L Mellette % (Auto) 5.1 Eos % (Auto) 0.2 Baso % (Auto) 0.2 Lymph # (Auto) 0.9 L Mellette # (Auto) 0.7 Eos # (Auto) 0.0 Baso # (Auto) 0.0 Abs Immat Gran (auto) 0.05 H Absolute Neuts (auto) 11.4 H Absolute Nucleated RBC 0.000 Nucleated RBC % (auto) 0.0 Anion Gap 16 Estim Creat Clear Calc 38.5 Estimated GFR > 60 POC Glucose Random Glucose 192 H Lactic Acid 3.4 H* Lactic Acid F/U @ 2Hr Calcium 9.8 Total Bilirubin 0.6 Direct Bilirubin 0.2 AST 26 ALT 24 Alkaline Phosphatase 82 Total Protein 7.4 Albumin 4.2 Urine Color Yellow Urine Appearance Clear Urine pH 5.5 Ur Specific [place] 1.015 Urine Protein Negative Urine Glucose (UA) Negative Urine Ketones Negative Urine Blood Negative Urine Nitrite Positive H Ur Leukocyte Esterase Moderate (2+) H Urine RBC 0-2 Urine WBC 11-20 Ur Squamous Epith Cells 0-2 Urine Bacteria 4+ Hyaline Casts 0-2 Influenza Type A (PCR) NEGATIVE Influenza Type B (PCR) NEGATIVE RSV RNA Qual (PCR) NEGATIVE SARS-CoV-2 RNA (RT-PCR) NEGATIVE 04/11/24 04/11/24 04/12/24 14:14 21:47 05:40 MCV 95.4 MCH 30.8 MCHC 32.3 RDW 14.4 Plt Count 235 MPV 10.2 Immature Gran % (Auto) Neut % (Auto) Lymph % (Auto) Mellette % (Auto) Eos % (Auto) Baso % (Auto) Lymph # (Auto) Mellette # (Auto) Eos # (Auto) Baso # (Auto) Abs Immat Gran (auto) Absolute Neuts (auto) Absolute Nucleated RBC 0.000 Nucleated RBC % (auto) 0.0 Anion Gap 10 L Estim Creat Clear Calc 53.0 Estimated GFR > 60 POC Glucose 115 Random Glucose 103 Lactic Acid Lactic Acid F/U @ 2Hr 1.1 Calcium 8.3 L D Total Bilirubin Direct Bilirubin AST ALT Alkaline Phosphatase Total Protein Albumin Urine Color Urine Appearance Urine pH Ur Specific [place] Urine Protein Urine Glucose (UA) Urine Ketones Urine Blood Urine Nitrite Ur Leukocyte Esterase Urine RBC Urine WBC Ur Squamous Epith Cells Urine Bacteria Hyaline Casts Influenza Type A (PCR) Influenza Type B (PCR) RSV RNA Qual (PCR) SARS-CoV-2 RNA (RT-PCR) Microbiology Microbiology Results: Microbiology 04/11/24 Unknown Urine Culture - Preliminary Urine Catheterized - Castillo Catheter Gram negative alva Streptococcus viridans group Assessment and Plan (1) Lactic acidosis: Status: Acute (2) Toxic metabolic encephalopathy: Status: Acute (3) Sepsis: Status: Acute (4) Urinary tract infection: Status: Acute (5) Pneumonia: Status: Acute Plan An 89 years old lady with PMH of Dementia coming from [facility] for change of mental status and fever. Sepsis 2/2 UTI and Pneumonia with Lactic acidosis Ucx growing Grp B strep and GNR CXR showing RLL infiltrates UA +ve for infection Pending blood cultures gentle IVF continue Azithromycin and Ceftriaxone Toxic metabolic encephalopathy 2/2 sepsis and polypharmacy treat infection hold home sedative meds recurrent reorientation DVT PPx Lovenox The patient will need overnight hospital stay for treatment of sepsis pending final blood cultures Quality Stroke Does the patient have a stroke diagnosis?: No VTE Prior VTE?: No VTE Risk Level:: Medical - moderate - high VTE Device Contraindication: Treatment Not Indicated VTE Drug Contraindication: N/A - Med Ordered
[2024-04-12 14:42] VITALS: BP 121/60; PULSE 80; RESP 18; TEMP 36.6; O2SAT 92
[2024-04-12] MEDS: Azithromycin 500 MG in 0.9 % Sodium Chloride 250 ML 125 MG IV (16:27)
[2024-04-12 19:18] VITALS: BP 146/67; PULSE 80; RESP 18; TEMP 36.2; O2SAT 96
[2024-04-12] MEDS: OLANZapine 10 MG VIAL 2.5 MG IM (20:43)
[2024-04-12] MEDS: 0.9 % Sodium Chloride Flush 3 ML SYRINGE IVFLUSH (20:44)
[2024-04-12] MEDS: Acetaminophen 325 MG TABLET 650 MG PO (23:34)
[2024-04-12] MEDS: Melatonin 3 MG TABLET 6 MG PO (23:35)
[2024-04-13 04:00] VITALS: BP 145/75; PULSE 81; RESP 16; TEMP 36.1; O2SAT 96
[2024-04-13] MEDS: Haloperidol Lactate 5 MG/ML VIAL IM (06:23)
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
[2024-04-13 06:30] LABS: Hematocrit 27.7 % (37.0-47.0); Hemoglobin 8.9 g/dl (12.0-16.0); Mean Corpuscular HGB Conc 32.1 g/dl (31.0-35.0); Mean Corpuscular Hemoglobin 30.8 pg (27.0-33.0); Mean Corpuscular Volume 95.8 fL (80.0-98.0); Mean Platelet Volume 10.6 fL (9.4-12.3); Platelet Count 246 X10*3/uL (160-400); Red Blood Count 2.89 X10*6/uL (4.20-5.50); Red Cell Distribution Width 14.4 % (11.0-16.0); White Blood Count 9.2 X10*3/uL (4.8-10.8)
[2024-04-13 06:45] LABS: Anion Gap 12 (12-20); Blood Urea Nitrogen 9 mg/dL (9-16); Calcium 7.6 mg/dL (8.4-10.2); Carbon Dioxide 21 mmol/L (22-29); Chloride 114 mmol/L (96-108); Creatinine Clr Calc Pharmacy 47.3; Estimated Glomerular Filt Rate > 60; Glucose Random 103 mg/dL (60-115); Potassium 3.2 mmol/L (3.3-5.1); Sodium 144 mmol/L (135-145)
[2024-04-13 07:02] VITALS: BP 117/53; PULSE 65; RESP 18; TEMP 36.3; O2SAT 94
[2024-04-13 08:30] LABS: Alanine Aminotransferase 14 U/L (0-31); Alkaline Phosphatase 54 U/L (39-117); Aspartate Amino Transferase 18 U/L (5-31); Bilirubin Direct 0.2 mg/dL (0.0-0.5); Bilirubin Total 0.4 mg/dL (0.0-1.0); Total Protein 5.4 g/dL (6.5-8.0)
[2024-04-13] MEDS: 0.9 % Sodium Chloride Flush 3 ML SYRINGE IVFLUSH (09:02)
[2024-04-13] MEDS: Acetaminophen 325 MG TABLET 650 MG PO (09:02)
[2024-04-13] MEDS: Potassium Chloride/H20 10 MEQ/100 ML PIGGYBACK 100 MEQ IV ×2 (09:07→10:26)
[2024-04-13] MEDS: 0.9 % Sodium Chloride 1,000 ML 75 ML IVCONT (09:21)
[2024-04-13] MEDS: Clotrimazole 1 % Cream 15 GM TUBE 1 APPL TOPICAL (09:27)
[2024-04-13] MEDS: cefTRIAXone sodium 1 GM in 0.9 % Sodium Chloride 50 ML IV (11:43)
--- NOTE | 2024-04-13 11:48 | P.DS_ITS ---
DS: Providers Provider Date of Service: 04/13/24 Date of admission: 04/11/24 14:33 Primary care physician: Unknown Physician DS: Diagnosis Discharge Diagnosis (1) Lactic acidosis: Status: Acute (2) Toxic metabolic encephalopathy: Status: Acute (3) Sepsis: Status: Acute (4) Urinary tract infection: Status: Acute (5) Pneumonia: Status: Acute DS: Summary Hospital Course Hospital Course: Admission note HPI An 89 years old lady with PMH of Dementia coming from [facility] for change of mental status and fever. The patient has dementia and unable to participate in history. information mainly from ED provider and documentation. EMS reported low O2 and placing her on O2 as they picked her from Facilty where they noticed changes in mentation today after eating. In ED she was found to have fever of 102, Leukocytosis with elevated LA. CXR showing pneumonia. UA possible UTI. Admitted for further evaluation and treatment. Hospital course Admited for Sepsis secondary to UTI and Pneumonia with Lactic acidosis as Urine cultures growing Grp B strep and E.Coli and CXR showing RLL infiltrates with negative blood cultures. Lactic acidosis resolved with IV fluids as she was Treated with Azithromycin and Ceftriaxone during hospital stay. To finish Ceftin and Azithromycin upon discharge. She was also monitored for Toxic metabolic encephalopathy as a result of sepsis and polypharmacy with baseline advanced dementia requiring treating the infection and hold home sedative meds with recurrent reorientation and the need of PRN medications to control her restlessness. To be discharged on same home medications and followed by her PCP for further adjustments. Discharge plan Continue 5 more days of Azithromycin and Ceftin Time Attestation Discharge Coordination Time (in mins): 42 Quality: Safe Use of Opioids Does Pt have an Active Cancer Diagnosis on the Problem List?: No Quality: Stroke Does the patient have a stroke diagnosis?: No Physical Exam Vital Signs: Vital Signs: Last Vital Signs Temp 97.3 F 04/13/24 07:02 Pulse 65 04/13/24 07:02 Resp 18 04/13/24 07:02 BP 117/53 L 04/13/24 07:02 Pulse Ox 94 04/13/24 07:02 O2 Del Method Room Air 04/13/24 07:02 BMI result Body Mass Index 25.4 Const: Other: Constitutional : alert, interactive, confused Cardiovascular : RRR, no JVP, no lower extremity edema Respiratory : good bilateral air entry, RLL fine basal crackles Gastrointestinal: soft, lax, Normal bowel sounds, Non tender Skin : Warm, Dry Neurological : Alert , responds in short sentences, confused and disoriented, No focal deficit DS: Data Data Completed and Pending Labs on day of discharge: Laboratory Results - last 24 hr 04/13/24 05:28 WBC 9.2 RBC 2.89 L Hgb 8.9 L Hct 27.7 L MCV 95.8 MCH 30.8 MCHC 32.1 RDW 14.4 Plt Count 246 MPV 10.6 Absolute Nucleated RBC 0.000 Nucleated RBC % (auto) 0.0 Sodium 144 Potassium 3.2 L Chloride 114 H Carbon Dioxide 21 L Anion Gap 12 BUN 9 Creatinine 0.66 Estim Creat Clear Calc 47.3 Estimated GFR > 60 Random Glucose 103 Calcium 7.6 L D Total Bilirubin 0.4 Direct Bilirubin 0.2 AST 18 ALT 14 Alkaline Phosphatase 54 Total Protein 5.4 L Albumin 3.0 L Preliminary micro results at discharge 04/11/24 12:05 Blood Culture - Preliminary Blood - Venous No growth after 24 hours. 04/11/24 11:47 Blood Culture - Preliminary Blood - Venous No growth after 24 hours. Imaging Chest x-ray: Radiologist's impression: ITS Impressions Chest X-Ray 04/11/24 11:45 IMPRESSION: Patchy opacity in the right lung base which could represent aspiration pneumonia. Discharge Plan Discharge Anticipated Discharge Date/Time: 04/13/24 11:43 Patient Disposition: Xfer [facility] Discharge Diagnosis: Sepsis UTI Pneumonia Referrals: steve [Other] - 1 Week Physician,Unknown J [Primary Care Provider] - 1 Week Discharge Medications: New azithromycin 500 mg tablet 500 mg PO DAILY 5 Days Qty: 5 0RF cefuroxime axetil 500 mg tablet 500 mg PO BID Qty: 10 0RF Continued acetaminophen [Tylenol] 325 mg Tablet 650 mg PO Q8H Rx Instructions: DNE 3 G / 24 HRS acetaminophen [Tylenol] 325 mg Tablet 650 mg PO Q6H PRN (Reason: Fever) Rx Instructions: DNE 3 G / 24 HRS ketoconazole 2 % shampoo 1 appl topical TUTHSA@0900 trazodone 50 mg tablet 25 mg PO DAILY@1400 trazodone 50 mg tablet 25 mg PO BID PRN (Reason: anxiety/agitation) Rx Instructions: END DATE: 7/25/24 magnesium hydroxide [Milk of Magnesia] 400 mg/5 mL Suspension 30 ml PO DAILY PRN (Reason: Constipation) bisacodyl 10 mg Suppository 10 mg AL DAILY PRN (Reason: Constipation) Fleet Enema 19-7 gram/118 mL Enema 118 ml AL DAILY PRN (Reason: Constipation) gabapentin 300 mg capsule 300 mg PO DAILY@1800 calcium carbonate 500 mg calcium (1,250 mg) Tablet,Chewable 500 mg PO TID ketoconazole 2 % cream 1 appl topical BID Aquaphor Original 41 % Ointment 1 appl TOPICAL BID Aquaphor Original 41 % Ointment 1 appl TOPICAL DAILY PRN (Reason: DERMATITIS) cholecalciferol (vitamin D3) [Vitamin D3] 25 mcg (1,000 unit) Tablet 25 mcg PO DAILY melatonin 5 mg Capsule 5 mg PO BEDTIME lidocaine 4 % Cream 1 appl TOPICAL BID PRN (Reason: right shoulder pain) Discharge Orders: Discharge Order (Routine); Ordered 04/13/24 Ordered By: Tammy Huang Diet: Advance to usual diet Activity on Discharge: As tolerated Stand Alone Forms: Patient Portal Discharge page Print Language: Sinhala Care Plan Goals: Continue Azithromycin and Ceftin as prescribed for 5 more day recurrent reorientation and redirecting Health Concerns: Read below Plan of Treatment: Read below Assessment: Read below
--- NOTE | 2024-04-13 12:09 | MHC.CM.PN ---
pt to be dcd today at 2 tp steve thompson notified of dc
--- NOTE | 2024-04-13 15:36 | PC.NURSE ---
pt alert and confused, endosed generalized aches and pains but denied pain. Pt transferred to [facility] via ambulance after lunch without issue. Pt ate well both meals today. IV removed.
== END 2024-04-13 14:33 | disposition intermediate care facility (04) | DRG 871 ==
LOC: HO.ED 12:09 → HO.EDOVER 14:40 → HO.S3 19:54
PROVIDERS: Admitting Provider Student in an Organized Health Care Education/Training Program; Emergency Provider Emergency Medicine Emergency Medical Services; PCP Family Medicine; Visit Provider Student in an Organized Health Care Education/Training Program
DX: A41.9 Sepsis, unspecified organism (principal); G92.8 Other toxic encephalopathy; J18.9 Pneumonia, unspecified organism; N39.0 Urinary tract infection, site not specified; E87.20 Acidosis, unspecified; B96.20 Unspecified Escherichia coli [E. coli] as the cause of diseases classified elsewhere; B95.1 Streptococcus, group B, as the cause of diseases classified elsewhere; F03.90 Unspecified dementia, unspecified severity, without behavioral disturbance, psychotic disturbance, mood disturbance, and anxiety; T50.915A Adverse effect of multiple unspecified drugs, medicaments and biological substances, initial encounter; Z20.822 Contact with and (suspected) exposure to COVID-19; Z79.899 Other long term (current) drug therapy
CPT/HCPCS: 0241U; 36415; 71045; 80048; 80076; 81001; 82947; 83605; 85025; 85027; 87040; 87086; 87088; 87186; 93005; 99285; J0456; J0692; J0696; J1630; J1650; J1836; J2359; J3480

== ENCOUNTER → 2024-04-11 14:17 | Outpatient (BNV) | payer MEDICARE, MEDICAID, SELFPAY | PROVIDERS: Admitting Provider Student in an Organized Health Care Education/Training Program; Emergency Provider Emergency Medicine Emergency Medical Services; Visit Provider Internal Medicine Cardiovascular Disease | DX: R94.31 Abnormal electrocardiogram [ECG] [EKG] (principal) | CPT/HCPCS: 93010 ==

== ENCOUNTER → 2024-04-11 14:33 | Outpatient (BNV) | payer MEDICARE, MEDICAID, SELFPAY | PROVIDERS: Admitting Provider Student in an Organized Health Care Education/Training Program; Emergency Provider Emergency Medicine Emergency Medical Services; Visit Provider Student in an Organized Health Care Education/Training Program | DX: E87.20 Acidosis, unspecified (principal); G92.8 Other toxic encephalopathy; A41.9 Sepsis, unspecified organism; N39.0 Urinary tract infection, site not specified; J18.9 Pneumonia, unspecified organism | CPT/HCPCS: 99223; 99233; 99239 ==